=== PATIENT | female | born 1965 | race Two or more races ===

== ENCOUNTER 2016-06-20 03:52 | Emergency (ER) | payer BC, OTHER ==
[~2016-06-20] VITALS: Ht 170.2 cm; Wt 108.4 kg
[2016-06-20 04:24] LABS: Basophils # (auto) 0 uL; Basophils % (auto) 0.7 % (0.0-2.0); Eosinophils # (auto) 0.1 uL; Eosinophils % (auto) 1.5 % (0.0-7.0); Hematocrit 46.3 % (36.0-46.0); Hemoglobin 15.6 g/dL (12.2-16.2); Lymphocytes # (auto) 2.5 uL; Lymphocytes % (auto) 38.7 % (10.0-50.0); Mean Corpuscular Hemoglobin 28.8 pg (28.0-32.0); Mean Corpuscular Hgb Conc. 33.6 g/dL (32.0-36.0); Mean Corpuscular Volume 85.7 fL (80.0-100.0); Mean Platelet Volume 8.5 fL (7.4-10.4); Monocytes # (auto) 0.5 uL; Monocytes % (auto) 7.2 % (0.0-12.0); Neutrophils # (auto) 3.3 uL; Neutrophils % (auto) 51.9 % (37.0-80.0); Platelet Count (auto) 271 10^3/uL (140-450); Red Cell Distribution Width 14.3 % (11.6-16.0); White Blood Cell 6.3 10^3/uL (4.4-10.8)
[2016-06-20 04:43] LABS: Albumin 3.9 g/dL (3.4-5.0); Calcium 8.8 mg/dL (8.5-10.1); Potassium 3.6 mmol/L (3.5-5.1)
[2016-06-20 04:46] LABS: Bilirubin, Total 0.6 mg/dL (0.2-1.0); Total Protein 8.6 g/dL (6.4-8.2)
[2016-06-20] MEDS ORDERED: SODIUM CHLORIDE 0.9% 1,000 ML IV ONE (06:37)
[2016-06-20] MEDS ORDERED: METOCLOPRAMIDE HCL 5MG/ml INJ 2ml VIAL IV ONE (06:45)
[2016-06-20] MEDS ORDERED: MORPHINE SULFATE 4 MG/ML SYRG IV ONE (06:45)
[2016-06-20 10:28] VITALS: BP 107/50
== END 2016-06-20 11:31 | disposition home or self-care (01) ==
LOC: ER 04:00
DX: R51 Headache (principal); I47.1 Supraventricular tachycardia; E66.9 Obesity, unspecified; I25.2 Old myocardial infarction; Z68.37 Body mass index [BMI] 37.0-37.9, adult
CPT/HCPCS: 36415; 70450; 71020; 80053; 81025; 83735; 84443; 85025; 85652; 93005; 94761; 96361; 96374; 99285; J2765; J7030

== ENCOUNTER 2018-04-27 05:23 | Emergency (ER) | payer BC, OTHER ==
[~2018-04-27] VITALS: Ht 170.2 cm; Wt 95.3 kg
[2018-04-27] MEDS ORDERED: cloNIDine HCL 0.1 MG TAB PO ONE (05:45)
[2018-04-27 06:46] LABS: Basophils # (auto) 0 uL; Eosinophils # (auto) 0.1 uL; Eosinophils % (auto) 1.6 % (0.0-7.0); Hematocrit 43.9 % (36.0-46.0); Hemoglobin 14.7 g/dL (12.2-16.2); Lymphocytes % (auto) 44.6 % (10.0-50.0); Mean Corpuscular Hgb Conc. 33.5 g/dL (32.0-36.0); Mean Corpuscular Volume 89.5 fL (80.0-100.0); Monocytes # (auto) 0.4 uL; Monocytes % (auto) 9.5 % (0.0-12.0); Neutrophils # (auto) 1.9 uL; Neutrophils % (auto) 43.3 % (37.0-80.0); Nucleated Red Blood Cells % 0.1 %; Platelet Count (auto) 215 10^3/uL (140-450); Red Cell Distribution Width 14.3 % (11.8-14.3); White Blood Cell 4.4 10^3/uL (4.4-10.8)
[2018-04-27 07:11] LABS: Alanine Aminotransferase 40 U/L (13-56); Albumin 3.6 g/dL (3.4-5.0); Anion Gap 8 (5-15); Aspartate Aminotransferase 21 U/L (15-37); BUN/Creatinine Ratio 33.9; Blood Urea Nitrogen 21 mg/dL (7-18); Carbon Dioxide 23 mmol/L (21-32); Chloride 106 mmol/L (98-107); GFR African American 131 mL/min; GFR Non-African American 108 mL/min; Glucose 93 mg/dL (74-106); Magnesium 2.1 mg/dL (1.6-2.6); Potassium 3.5 mmol/L (3.5-5.1); Sodium 137 mmol/L (136-145)
[2018-04-27 07:22] LABS: Alkaline Phosphatase 85 U/L (45-117); Bilirubin, Total 0.4 mg/dL (0.2-1.0); Total Protein 7.8 g/dL (6.4-8.2)
[2018-04-27 07:52] LABS: Urine Bacteria NONE SEEN /hpf (None Seen); Urine Blood Negative /uL (Negative); Urine Specific Gravity 1.015 (1.001-1.035); Urine WBC <1 /hpf (0 - 5)
[2018-04-27 10:41] VITALS: BP 127/81
== END 2018-04-27 11:58 | disposition home or self-care (01) ==
LOC: ER 05:23
DX: R07.89 Other chest pain (principal); I10 Essential (primary) hypertension; I47.1 Supraventricular tachycardia; F41.9 Anxiety disorder, unspecified; I25.2 Old myocardial infarction
CPT/HCPCS: 36415; 71045; 80053; 81001; 83735; 84443; 84484; 85025; 93005; 94761

== ENCOUNTER → 2018-06-18 | Outpatient (CLI) | payer OTHER ==
[~2018-06-18] MED LIST: AML5T PO; ASPI81CH43 PO; ATOR20TA50 PO; NITR-52 PO
[2018-06-18 09:38] LABS: Basophils # (auto) 0.1 uL; Basophils % (auto) 1.6 % (0.0-2.0); Eosinophils # (auto) 0.1 uL; Eosinophils % (auto) 2.7 % (0.0-7.0); Hematocrit 44.8 % (36.0-46.0); Lymphocytes # (auto) 1.4 uL; Lymphocytes % (auto) 33.9 % (10.0-50.0); Mean Corpuscular Hemoglobin 29.7 pg (28.0-32.0); Mean Corpuscular Hgb Conc. 33.4 g/dL (32.0-36.0); Monocytes # (auto) 0.4 uL; Monocytes % (auto) 9.2 % (0.0-12.0); Neutrophils # (auto) 2.1 uL; Neutrophils % (auto) 52.6 % (37.0-80.0); Nucleated Red Blood Cells % 0.2 %; Platelet Count (auto) 252 10^3/uL (140-450); Red Blood Cells 5.03 10^6/uL (4.0-5.20); Red Cell Distribution Width 13.3 % (11.8-14.3)
[2018-06-18 10:09] LABS: Albumin 3.8 g/dL (3.4-5.0); BUN/Creatinine Ratio 26.9; Calcium 8.5 mg/dL (8.5-10.1)
[2018-06-18 10:12] LABS: Bilirubin, Total 0.7 mg/dL (0.2-1.0)
[2018-06-18 11:11] LABS: Free T4 (Free Thyroxine) 1.08 ng/dL (0.89-1.76); Leuteinizing Hormone 21.4 IU/L
[2018-06-18 11:12] LABS: Follicle Stimulating Hormone 33.14 IU/L (SEE BELOW)
[2018-06-18 11:13] LABS: Folate (Folic Acid) 17.46 ng/mL (5.38-24)
== END | disposition home or self-care (01) ==
LOC: LAB 09:18
PROVIDERS: ATTEND Internal Medicine
DX: E78.5 Hyperlipidemia, unspecified (principal)
CPT/HCPCS: 36415; 80053; 82607; 82670; 82746; 83001; 83002; 83036; 84403; 84439; 84443; 85025

== ENCOUNTER → 2018-09-10 | Outpatient (CLI) | payer OTHER ==
[~2018-09-10] MED LIST changes: -AML5T PO; -ASPI81CH43 PO; -ATOR20TA50 PO; +ATOR40TA52 PO; +LISI10TA6 PO; +METO25TA62 PO; -NITR-52 PO
== END | disposition home or self-care (01) ==
LOC: XYW 09:24
PROVIDERS: ATTEND Internal Medicine
DX: I08.2 Rheumatic disorders of both aortic and tricuspid valves (principal); I10 Essential (primary) hypertension; Z86.73 Personal history of transient ischemic attack (TIA), and cerebral infarction without residual deficits
CPT/HCPCS: 93306

== ENCOUNTER → 2018-10-14 | Outpatient (CLI) | payer OTHER ==
[~2018-10-14] MED LIST changes: +AMLO10TA13 PO; +ASPI-404 PO; +HYDR25TA4 PO; +LOSA-69 PO
[2018-10-14 10:20] LABS: Basophils # (auto) 0.1 uL; Basophils % (auto) 1.5 % (0.0-2.0); Eosinophils # (auto) 0.1 uL; Eosinophils % (auto) 1.9 % (0.0-7.0); Hematocrit 41.5 % (36.0-46.0); Hemoglobin 14.2 g/dL (12.2-16.2); Lymphocytes # (auto) 1.2 uL; Lymphocytes % (auto) 30.1 % (10.0-50.0); Mean Corpuscular Hemoglobin 30.2 pg (28.0-32.0); Mean Corpuscular Hgb Conc. 34.2 g/dL (32.0-36.0); Mean Corpuscular Volume 88.2 fL (80.0-100.0); Monocytes # (auto) 0.4 uL; Monocytes % (auto) 8.8 % (0.0-12.0); Neutrophils # (auto) 2.3 uL; Neutrophils % (auto) 57.7 % (37.0-80.0); Platelet Count (auto) 225 10^3/uL (140-450); Red Cell Distribution Width 14.4 % (11.8-14.3)
[2018-10-14 11:17] LABS: Folate (Folic Acid) 12.1 ng/mL (5.38-24)
[2018-10-14 11:25] LABS: Potassium 3.1 mmol/L (3.5-5.1)
[2018-10-14 11:32] LABS: % Iron Saturation 39.4 % (15-50)
[2018-10-14 11:34] LABS: Albumin 3.6 g/dL (3.4-5.0); BUN/Creatinine Ratio 26.1; Bilirubin, Total 0.8 mg/dL (0.2-1.0); Calcium 8.7 mg/dL (8.5-10.1); Total Protein 7.9 g/dL (6.4-8.2)
== END | disposition home or self-care (01) ==
LOC: LAB 09:47
PROVIDERS: ATTEND Internal Medicine
DX: N63.10 Unspecified lump in the right breast, unspecified quadrant (principal); E78.5 Hyperlipidemia, unspecified; I10 Essential (primary) hypertension
CPT/HCPCS: 36415; 80053; 80061; 82746; 83540; 83550; 85025

== ENCOUNTER 2018-10-15 06:20 | Day surgery (SDC) | payer OTHER ==
[2018-10-14 10:21] LABS: Basophils # (auto) 0.1 uL; Eosinophils # (auto) 0.1 uL; Eosinophils % (auto) 1.8 % (0.0-7.0); Hematocrit 41.1 % (36.0-46.0); Lymphocytes # (auto) 1.2 uL; Lymphocytes % (auto) 28.8 % (10.0-50.0); Mean Corpuscular Hgb Conc. 34.1 g/dL (32.0-36.0); Mean Corpuscular Volume 87.9 fL (80.0-100.0); Monocytes # (auto) 0.3 uL; Monocytes % (auto) 8.1 % (0.0-12.0); Neutrophils # (auto) 2.4 uL; Neutrophils % (auto) 59.3 % (37.0-80.0); Nucleated Red Blood Cells % 0.1 %; Platelet Count (auto) 225 10^3/uL (140-450); Red Blood Cells 4.67 10^6/uL (4.0-5.20); Red Cell Distribution Width 14.1 % (11.8-14.3); White Blood Cell 4.1 10^3/uL (4.4-10.8)
[2018-10-14 10:24] LABS: Urine Bacteria NONE SEEN /hpf (None Seen); Urine Blood Negative /uL (Negative); Urine Mucus FEW (None Seen); Urine Specific Gravity 1.023 (1.001-1.035); Urine WBC 3 /hpf (0 - 5)
[2018-10-14 10:42] LABS: INR 0.93 (0.9-1.15); Partial Thromboplastin Time 29.6 sec (23.64-32.05)
[2018-10-14 11:22] LABS: Calcium 8.6 mg/dL (8.5-10.1); Potassium 3.1 mmol/L (3.5-5.1)
[2018-10-14 11:28] LABS: Albumin 3.6 g/dL (3.4-5.0); BUN/Creatinine Ratio 24.6; Bilirubin, Total 0.8 mg/dL (0.2-1.0); Total Protein 7.9 g/dL (6.4-8.2)
[~2018-10-15] VITALS: Ht 170.2 cm; Wt 95.3 kg
[~2018-10-15 06:20] MED LIST changes: -LISI10TA6 PO; -METO25TA62 PO
[2018-10-15] MEDS ORDERED: ceFAZolin 1GM/50ML 50 ML IV ONE (07:06)
[2018-10-15] MEDS ORDERED: BUPIVACAINE W/ EPINEPH 0.25% INJ 50ML MDV ONE (07:18)
[2018-10-15] MEDS ORDERED: POVIDONE IODINE 10 % TOPICAL OINT 30GM TOP ONE (07:19)
[2018-10-15] MEDS ORDERED: PROPOFOL 10 MG/ML 20 ML IV ONE (07:20)
[2018-10-15] MEDS ORDERED: SUCCINYLCHOLINE CHLORIDE 20 MG/ML 10ML VIAL IV ONE (07:23)
[2018-10-15] MEDS ORDERED: ROCURONIUM 10MG/ML 10ML VIAL IV ONE (07:23)
[2018-10-15] MEDS ORDERED: MIDAZOLAM HCL 1MG/1ML-2 ML VIAL ONE (07:30)
[2018-10-15] MEDS ORDERED: MEPERIDINE HCL (50 MG/ML) 1 ML VIAL ONE (07:30)
[2018-10-15] MEDS ORDERED: DexAMETHasone SOD PHOS 10MG/1ML VIAL INJ ONE (07:57)
[2018-10-15] MEDS ORDERED: HYDROmorphone HCL 2 MG/ML VL IV PRN (09:00)
[2018-10-15 09:29] VITALS: BP 106/72
== END 2018-10-15 09:50 | disposition home or self-care (01) ==
LOC: SUR 06:20
PROVIDERS: ATTEND Surgery
DX: C4A.72 Merkel cell carcinoma of left lower limb, including hip (principal); I10 Essential (primary) hypertension; E66.9 Obesity, unspecified; F41.9 Anxiety disorder, unspecified; Z98.890 Other specified postprocedural states; Z88.8 Allergy status to other drugs, medicaments and biological substances; Z79.82 Long term (current) use of aspirin; Z79.899 Other long term (current) drug therapy; Z78.0 Asymptomatic menopausal state; Z68.32 Body mass index [BMI] 32.0-32.9, adult; Z87.59 Personal history of other complications of pregnancy, childbirth and the puerperium
CPT/HCPCS: 11606; 36415; 80053; 81001; 84702; 85025; 85610; 85730; 88304; 88342; J0330; J0690; J1100; J2175; J2250; J2704

== ENCOUNTER → 2019-04-24 | Outpatient (CLI) | payer OTHER ==
[2019-04-24 15:01] LABS: Basophils # (auto) 0 uL; Basophils % (auto) 1.1 % (0.0-2.0); Eosinophils # (auto) 0 uL; Hemoglobin 13.8 g/dL (12.2-16.2); Lymphocytes # (auto) 0.5 uL; Mean Corpuscular Hemoglobin 30.2 pg (28.0-32.0); Mean Corpuscular Hgb Conc. 33.6 g/dL (32.0-36.0); Mean Corpuscular Volume 89.7 fL (80.0-100.0); Monocytes # (auto) 0.3 uL; Monocytes % (auto) 11.3 % (0.0-12.0); Neutrophils # (auto) 1.6 uL; Neutrophils % (auto) 64.6 % (37.0-80.0); Nucleated Red Blood Cells % 0.1 %; Platelet Count (auto) 211 10^3/uL (140-450); Red Blood Cells 4.57 10^6/uL (4.0-5.20); Red Cell Distribution Width 15.8 % (11.8-14.3); White Blood Cell 2.5 10^3/uL (4.4-10.8)
[2019-04-24 15:48] LABS: Albumin 3.9 g/dL (3.4-5.0); Calcium 9.2 mg/dL (8.5-10.1); Potassium 3.9 mmol/L (3.5-5.1)
[2019-04-24 15:52] LABS: Bilirubin, Total 0.7 mg/dL (0.2-1.0); Phosphorus 2.7 mg/dL (2.5-4.90); Total Protein 8.2 g/dL (6.4-8.2); Uric Acid 3.3 mg/dL (2.6-6.0)
[2019-04-24 15:58] LABS: Free T3 3.06 pg/mL (2.3-4.2); Free T4 (Free Thyroxine) 1.04 ng/dL (0.89-1.76)
[2019-04-24 17:26] LABS: BUN/Creatinine Ratio 21.9
== END | disposition home or self-care (01) ==
LOC: LAB 14:26
DX: C4A.72 Merkel cell carcinoma of left lower limb, including hip (principal); E78.5 Hyperlipidemia, unspecified
CPT/HCPCS: 36415; 80053; 82150; 83615; 83690; 84100; 84439; 84443; 84481; 84550; 85025

== ENCOUNTER → 2021-08-16 | Outpatient (CLI) | payer OTHER ==
[~2021-08-16] MED LIST changes: +AMLO-496 PO; -AMLO10TA13 PO; -ASPI-404 PO; +ASPI-543 PO
[2021-08-16 10:18] LABS: Albumin 3.6 g/dL (3.4-5.0); Calcium 8.8 mg/dL (8.5-10.1); Potassium 3.7 mmol/L (3.5-5.1)
[2021-08-16 10:27] LABS: Bilirubin, Total 0.5 mg/dL (0.2-1.0); Total Protein 7.7 g/dL (6.4-8.2)
[2021-08-16 10:38] LABS: Basophils # (auto) 0 10 ^3/uL (0-0.2); Basophils % (auto) 1.1 % (0.0-2.0); Eosinophils # (auto) 0.1 10 ^3/uL (0-0.8); Eosinophils % (auto) 2.2 % (0.0-7.0); Hematocrit 42.4 % (36.0-46.0); Lymphocytes # (auto) 1.6 10 ^3/uL (0.4-5.4); Lymphocytes % (auto) 42.3 % (10.0-50.0); Mean Corpuscular Hemoglobin 29.7 pg (28.0-32.0); Mean Corpuscular Hgb Conc. 32.9 g/dL (32.0-36.0); Mean Corpuscular Volume 90.2 fL (80.0-100.0); Monocytes # (auto) 0.4 10 ^3/uL (0-1.3); Monocytes % (auto) 10.3 % (0.0-12.0); Neutrophils # (auto) 1.6 10 ^3/uL (1.6-8.6); Neutrophils % (auto) 44.1 % (37.0-80.0); Nucleated Red Blood Cells % 0.2 %; Red Blood Cells 4.71 10^6/uL (4.0-5.20); Red Cell Distribution Width 14.7 % (11.8-14.3); White Blood Cell 3.7 10^3/uL (4.4-10.8)
== END | disposition home or self-care (01) ==
LOC: LAB 09:36
PROVIDERS: ATTEND Internal Medicine
DX: C41.9 Malignant neoplasm of bone and articular cartilage, unspecified (principal); I10 Essential (primary) hypertension
CPT/HCPCS: 36415; 80053; 80061; 82306; 84443; 85025

== ENCOUNTER → 2021-09-25 | Outpatient (CLI) | payer OTHER ==
[2021-09-25 11:09] LABS: Basophils # (auto) 0 10 ^3/uL (0-0.2); Basophils % (auto) 1.3 % (0.0-2.0); Eosinophils # (auto) 0 10 ^3/uL (0-0.8); Eosinophils % (auto) 1.1 % (0.0-7.0); Hematocrit 42.6 % (36.0-46.0); Hemoglobin 14.3 g/dL (12.2-16.2); Lymphocytes # (auto) 1.1 10 ^3/uL (0.4-5.4); Lymphocytes % (auto) 32.4 % (10.0-50.0); Mean Corpuscular Hemoglobin 30.4 pg (28.0-32.0); Mean Corpuscular Hgb Conc. 33.5 g/dL (32.0-36.0); Mean Corpuscular Volume 90.7 fL (80.0-100.0); Monocytes # (auto) 0.4 10 ^3/uL (0-1.3); Monocytes % (auto) 11.1 % (0.0-12.0); Neutrophils # (auto) 1.9 10 ^3/uL (1.6-8.6); Neutrophils % (auto) 54.1 % (37.0-80.0); Nucleated Red Blood Cells % 0.2 %; Red Blood Cells 4.69 10^6/uL (4.0-5.20); Red Cell Distribution Width 14.7 % (11.8-14.3); White Blood Cell 3.5 10^3/uL (4.4-10.8)
[2021-09-25 11:23] LABS: Albumin 3.8 g/dL (3.4-5.0); Calcium 9.1 mg/dL (8.5-10.1); Potassium 3.2 mmol/L (3.5-5.1)
[2021-09-25 11:26] LABS: BUN/Creatinine Ratio 23.1; Bilirubin, Total 0.6 mg/dL (0.2-1.0)
[2021-09-25 19:17] LABS: Free T4 (Free Thyroxine) 1.79 ng/dL (0.89-1.76); T3 Total 1.08 ng/mL (0.60-1.81)
== END | disposition home or self-care (01) ==
LOC: LAB 10:31
PROVIDERS: ATTEND Internal Medicine
DX: E11.9 Type 2 diabetes mellitus without complications (principal); I10 Essential (primary) hypertension
CPT/HCPCS: 36415; 80053; 82024; 82533; 84436; 84439; 84443; 84480; 85025

== ENCOUNTER → 2021-11-14 | Outpatient (CLI) | payer OTHER ==
[2021-11-14 13:21] LABS: Potassium 4.1 mmol/L (3.5-5.1)
[2021-11-14 13:28] LABS: BUN/Creatinine Ratio 22.4; Calcium 8.7 mg/dL (8.5-10.1)
== END | disposition home or self-care (01) ==
LOC: LAB 11:54
PROVIDERS: ATTEND Internal Medicine
DX: E03.9 Hypothyroidism, unspecified (principal); E78.5 Hyperlipidemia, unspecified
CPT/HCPCS: 36415; 80048; 80061

== ENCOUNTER → 2022-01-24 | Outpatient (CLI) | payer OTHER | END | disposition home or self-care (01) | LOC: LAB 11:42 | PROVIDERS: ATTEND Internal Medicine | DX: E87.6 Hypokalemia (principal) | CPT/HCPCS: 36415; 84132 ==

== ENCOUNTER → 2022-01-29 | Outpatient (CLI) | payer OTHER ==
[2022-01-29 09:49] LABS: Albumin 3.5 g/dL (3.4-5.0); Calcium 9.6 mg/dL (8.5-10.1); Potassium 3.6 mmol/L (3.5-5.1)
[2022-01-29 09:54] LABS: BUN/Creatinine Ratio 33.3; Bilirubin, Total 0.8 mg/dL (0.2-1.0); Total Protein 7.8 g/dL (6.4-8.2)
== END | disposition home or self-care (01) ==
LOC: LAB 09:04
PROVIDERS: ATTEND Internal Medicine
DX: E78.5 Hyperlipidemia, unspecified (principal); E55.9 Vitamin D deficiency, unspecified
CPT/HCPCS: 36415; 80053; 80061; 82306

== ENCOUNTER → 2022-06-20 | Outpatient (CLI) | payer OTHER ==
[2022-06-20 14:42] LABS: Basophils # (auto) 0.1 10 ^3/uL (0-0.2); Basophils % (auto) 1.3 % (0.0-2.0); Eosinophils # (auto) 0.1 10 ^3/uL (0-0.8); Eosinophils % (auto) 1.8 % (0.0-7.0); Hematocrit 43.5 % (36.0-46.0); Hemoglobin 14.6 g/dL (12.2-16.2); Lymphocytes # (auto) 1.5 10 ^3/uL (0.4-5.4); Mean Corpuscular Hemoglobin 29.7 pg (28.0-32.0); Mean Corpuscular Hgb Conc. 33.5 g/dL (32.0-36.0); Mean Corpuscular Volume 88.6 fL (80.0-100.0); Monocytes # (auto) 0.5 10 ^3/uL (0-1.3); Monocytes % (auto) 11.8 % (0.0-12.0); Neutrophils # (auto) 2.2 10 ^3/uL (1.6-8.6); Neutrophils % (auto) 51.1 % (37.0-80.0); Nucleated Red Blood Cells % 0.3 %; Red Blood Cells 4.91 10^6/uL (4.0-5.20); Red Cell Distribution Width 14.6 % (11.8-14.3); White Blood Cell 4.4 10^3/uL (4.4-10.8)
[2022-06-20 15:37] LABS: Albumin 3.6 g/dL (3.4-5.0)
[2022-06-20 15:40] LABS: BUN/Creatinine Ratio 23.5 (10.0-20.0); Calcium 9.2 mg/dL (8.5-10.1)
[2022-06-20 15:42] LABS: Bilirubin, Total 0.4 mg/dL (0.2-1.0); Total Protein 8.2 g/dL (6.4-8.2)
== END | disposition home or self-care (01) ==
LOC: LAB 14:18
PROVIDERS: ATTEND Nurse Practitioner
DX: I10 Essential (primary) hypertension (principal); E78.5 Hyperlipidemia, unspecified; E03.9 Hypothyroidism, unspecified
CPT/HCPCS: 36415; 80053; 84443; 85025

== ENCOUNTER → 2023-01-29 | Outpatient (CLI) | payer OTHER ==
[~2023-01-29] MED LIST changes: -AMLO-496 PO; +CEPH250C PO; +LEV50T PO; -LOSA-69 PO; +LOSA50TA46 PO
[2023-01-29 11:13] LABS: Alanine Aminotransferase 61 U/L (7-40); Albumin 4.6 g/dL (3.2-4.8); Alkaline Phosphatase 99 U/L (46-116); Amylase 76 U/L (30-118); Anion Gap 6 (5-15); Aspartate Aminotransferase 43 U/L (13-40); BUN/Creatinine Ratio 14.7 (10.0-20.0); Blood Urea Nitrogen 11 mg/dL (9-23); Carbon Dioxide 25 mmol/L (20-30); Chloride 108 mmol/L (98-107); Glucose 107 mg/dL (74-106); Lipase 32 U/L (12-53); Potassium 3.8 mmol/L (3.5-5.1); Sodium 139 mmol/L (136-145)
[2023-01-29 11:14] LABS: Bilirubin, Total 0.8 mg/dL (0.2-1.0); Total Protein 7.6 g/dL (5.7-8.2)
== END | disposition home or self-care (01) ==
LOC: LAB 10:12
PROVIDERS: ATTEND Internal Medicine
DX: C4A.9 Merkel cell carcinoma, unspecified (principal)
CPT/HCPCS: 36415; 80053; 82150; 83690

== ENCOUNTER → 2023-03-19 | Outpatient (CLI) | payer OTHER ==
[2023-03-19 15:57] LABS: Albumin 4.8 g/dL (3.2-4.8); Bilirubin, Direct 0.2 mg/dL (<0.3); Bilirubin, Total 0.7 mg/dL (0.2-1.0)
== END | disposition home or self-care (01) ==
LOC: LAB 15:10
PROVIDERS: ATTEND Internal Medicine
DX: E55.9 Vitamin D deficiency, unspecified (principal)
CPT/HCPCS: 36415; 80076; 82306; 83036

== ENCOUNTER → 2023-03-22 | Outpatient (CLI) | payer OTHER ==
[2023-03-22 07:53] LABS: Basophils # (auto) 0 10 ^3/uL (0-0.2); Basophils % (auto) 0.9 % (0.0-2.0); Eosinophils # (auto) 0.1 10 ^3/uL (0-0.8); Eosinophils % (auto) 1.6 % (0.0-7.0); Hematocrit 43.5 % (36.0-46.0); Hemoglobin 14.2 g/dL (12.2-16.2); Lymphocytes # (auto) 1.3 10 ^3/uL (0.4-5.4); Lymphocytes % (auto) 29.6 % (10.0-50.0); Mean Corpuscular Hemoglobin 29.4 pg (28.0-32.0); Mean Corpuscular Hgb Conc. 32.7 g/dL (32.0-36.0); Mean Corpuscular Volume 89.8 fL (80.0-100.0); Monocytes # (auto) 0.4 10 ^3/uL (0-1.3); Monocytes % (auto) 8.4 % (0.0-12.0); Neutrophils # (auto) 2.7 10 ^3/uL (1.6-8.6); Neutrophils % (auto) 59.5 % (37.0-80.0); Nucleated Red Blood Cells % 0.1 %; Red Blood Cells 4.84 10^6/uL (4.0-5.20); Red Cell Distribution Width 13.9 % (11.8-14.3); White Blood Cell 4.5 10^3/uL (4.4-10.8)
[2023-03-22 08:24] LABS: Alanine Aminotransferase 43 U/L (7-40); Alkaline Phosphatase 106 U/L (46-116); Anion Gap 7 (5-15); BUN/Creatinine Ratio 15.2 (10.0-20.0); Blood Urea Nitrogen 12 mg/dL (9-23); Calcium 9.6 mg/dL (8.5-10.1); Carbon Dioxide 26 mmol/L (20-30); Chloride 107 mmol/L (98-107); Glucose 96 mg/dL (74-106); LDL Cholesterol 60 mg/dL (< 100); Potassium 3.9 mmol/L (3.5-5.1); Sodium 140 mmol/L (136-145); Triglycerides 104 mg/dL (< 150)
[2023-03-22 08:25] LABS: Albumin 4.7 g/dL (3.2-4.8); Aspartate Aminotransferase 24 U/L (13-40); Bilirubin, Total 0.8 mg/dL (0.2-1.0); Cholesterol 123 mg/dL (< 200); HDL Cholesterol 45 mg/dL (40-59)
[2023-03-22 08:26] LABS: Total Protein 7.8 g/dL (5.7-8.2)
== END | disposition home or self-care (01) ==
LOC: LAB 07:40
PROVIDERS: ATTEND Internal Medicine
DX: E78.5 Hyperlipidemia, unspecified (principal)
CPT/HCPCS: 36415; 80053; 80061; 80074; 85025

== ENCOUNTER 2024-11-02 13:55 | Inpatient (IN) | payer OTHER ==
[~2024-11-02] VITALS: Ht 170.2 cm; Wt 112.2 kg
[~2024-11-02 13:55] MED LIST changes: -LEV50T PO; +LEVO-848 PO; +LOSA-534 PO; -LOSA50TA46 PO
--- NOTE | 2024-11-02 14:39 | ED.PDOC ---
History of Present Illness HPI Comments 59y F who presents to the ED for chief complaint of fatigue and left upper extremity pain. Pt states she has been having extreme fatigue over the past 2 weeks, falling asleep multiple times a day. Patient states today, she developed shortness of breath, dyspnea on exertion, and left upper extremity throbbing pain in her wrist, forearm, shoulder and radiating to the left upper back. Pt states reports similar left upper extremity pain with previous VA. PT states in the ED, she is having pain by the L wrist, throbbing in nature, with no exacerbating or relieving factors. Pt states she is currently in remission for [place] cell cancer. Pt in the ED is otherwise ax0x4 and no noted abnormalities in gait, vision or speech are noted. Pt has noted heart rate of 106 but otherwise stable vitals with 02 sat of 97% on room air, BP 130/78, RR 16, and temp of 98.6 F. Pt otherwise denies any other symptoms at this time. Chief Complaint: Upper Extremity Time Seen by MD: 14:33 Primary Care Provider: NONE Reviewed Notes: Medications, Allergies Allergies: Coded Allergies: NO KNOWN ALLERGIES (Unverified , 10/14/18) Home Meds Active Scripts Cephalexin (KEFLEX CAPSULE) 250 Mg Cp, 500 MG PO TID for 5 Days, #15 CAP Prov:MIGEL POWERS MD 09/16/22 Reported Medications Levothyroxine Sodium (SYNTHROID TABLET) 50 Mcg Tb, 1 TAB PO DAILY, TAB 5 Refills 09/14/22 Aspirin (Aspir-Low) 81 Mg Tab, 81 MG PO DAILY for 30 Days, MG 10/14/18 Losartan Potassium (Losartan Potassium) 50 Mg Tab, 50 MG PO HS for 30 Days, MG 10/14/18 Hydrochlorothiazide (Hydrochlorothiazide) 25 Mg Tab, 25 MG PO HS for 30 Days, MG 10/14/18 Atorvastatin Calcium (ATORVASTATIN CALCIUM) 40 Mg Tab, 1 TAB PO QPM, #90 TAB 3 Refills 07/22/18 Information Source: Patient Mode of Arrival: Ambulatory Past Medical History PAST MEDICAL HISTORY: Anxiety, Cancer, CVA, High Lipids, HTN, VA Surgical History: LITIGATION PARTNER History: No Pertinent LITIGATION PARTNER History Family History Family History: Reviewed,noncontributory to illness, No family hx of Cancer, No family hx of Heart vic Social History Smoker: Non-Smoker Alcohol: Denies ETOH Use Drugs: Denies Drug Use Lives In: Home All Other Systems: Reviewed and Negative (see HPI) Physical Exam General Appearance: No Apparent Distress, Obese HEENT: Other (Pupils and face symmetric. Moist mucous membranes.) Neck: Full Range of Motion, Normal Inspection Respiratory: Lungs Clear, No Accessory Muscle Use, No Respiratory Distress, Normal Breath Sounds Cardiovascular: No Edema, No JVD, Regular Rate/Rhythm Breast Exam: Deferred Gastrointestinal: Non Tender, Soft Genitalia: Deferred Pelvic: Deferred Rectal: Deferred Extremities: Normal inspection, Normal range of motion, Non-tender, No pedal edema Neurologic: Alert (Oriented x4), Normal Affect, Normal Mood, Other (Ambulatory) Cerebellar Function: NOT DONE Reflexes: NOT DONE Skin: Dry, Normal Color, Warm Lymphatic: NOT DONE Was a procedure done? Was a procedure done?: No EKG EKG : Comments Sinus rhythm, rate 79, normal intervals, normal axis, normal QRS, nonspecific T change. Differential Dx Considerations may include: Angina, ACS, VA, CHF, PE, among others X-Ray, Labs, Meds, VS Vital Signs Date Time Temp Pulse Resp B/P (MAP) Pulse Ox O2 Delivery O2 Flow Rate FiO2 11/02/24 19:02 97.8 72 12 109/80 (90) 95 97.8 11/02/24 15:37 137/95 11/02/24 14:15 79 11/02/24 14:02 98.6 106 16 130/78 97 98.6 Lab Test 11/02/24 15:46 11/02/24 14:45 Range/Units Troponin I High Sensitivity < 3 L < 3 L </=34 ng/L White Blood Count 3.7 L 4.4-10.8 10^3/uL Red Blood Count 5.22 H 4.0-5.20 10^6/uL Hemoglobin 15.9 12.2-16.2 g/dL Hematocrit 46.4 H 36.0-46.0 % Mean Corpuscular Volume 88.8 80.0-100.0 fL Mean Corpuscular Hemoglobin 30.4 28.0-32.0 pg Mean Corpuscular Hemoglobin Concent 34.3 32.0-36.0 g/dL Red Cell Distribution Width 15.8 H 11.8-14.3 % Platelet Count 204 140-450 10^3/uL Mean Platelet Volume 8.8 6.9-10.8 fL Neutrophils (%) (Auto) 50.3 37.0-80.0 % Lymphocytes (%) (Auto) 32.8 10.0-50.0 % Monocytes (%) (Auto) 12.1 H 0.0-12.0 % Eosinophils (%) (Auto) 3.5 0.0-7.0 % Basophils (%) (Auto) 1.3 0.0-2.0 % Neutrophils # (Auto) 1.9 1.6-8.6 10 ^3/uL Lymphocytes # (Auto) 1.2 0.4-5.4 10 ^3/uL Monocytes # (Auto) 0.5 0-1.3 10 ^3/uL Eosinophils # (Auto) 0.1 0-0.8 10 ^3/uL Basophils # (Auto) 0 0-0.2 10 ^3/uL Nucleated Red Blood Cells 0.2 % D-Dimer, Quantitative < 0.19 0.0-0.49 mg/L FEU Sodium Level 140 136-145 mmol/L Potassium Level 3.9 3.5-5.1 mmol/L Chloride Level 106 98-107 mmol/L Carbon Dioxide Level 24 20-31 mmol/L Anion Gap 10 5-15 Blood Urea Nitrogen 10 9-23 mg/dL Creatinine 0.70 0.550-1.02 mg/dL Glomerular Filtration Rate Calc 100 >90 mL/min BUN/Creatinine Ratio 14.3 10.0-20.0 Serum Glucose 104 74-106 mg/dL Calcium Level 9.2 8.7-10.4 mg/dL B-Type Natriuretic Peptide 27.47 0-100 pg/mL Current Medications Medications (Trade) Dose Ordered Sig/Linsey Route Start Time Stop Time Status Last Admin Aspirin 325 mg ONCE ONCE PO 11/02/24 14:30 11/02/24 14:31 DC 11/02/24 15:37 Nitroglycerin (Nitro-Bid) 1 pkg ONCE ONCE TD 11/02/24 14:30 11/02/24 14:31 DC 11/02/24 15:[address] [address] Ph: [phone] DIAGNOSTIC IMAGING Diagnostic Imaging Report : [id number] Signed PATIENT: AMBER RAJPUT ACCT: [id number] UNIT: [id number] : 1965 LOC: ER ROOM / BED: / AGE / SEX: 59 / F ADM STATUS: REG ER SERVICE 1413 ORDERING PHYSICIAN: BENJI LANDAVERDE MD PROCEDURE(s): CXRP - CHEST PORTABLE REASON: LUE pain ORDER NUMBER(s): [id number], ACCESSION NUMBER(s): [id number] XY CHEST PORTABLE, HISTORY: LUE pain COMPARISON: XY CHEST PORTABLE on DOS: 09/13/22 XY CHEST PORTABLE on DOS: 09/13/22 TECHNICAL DATA: 1 view of the chest was obtained. FINDINGS: Lines and tubes: None Cardiomediastinal silhouette: normal Pulmonary vasculature: normal Lung expansion: normal Lung airspace: normal Lung interstitium: normal Pleura: normal Pneumothorax: no Bones: Unremarkable Other: no IMPRESSION: No acute intrathoracic abnormality. ATED BY: JAMAR HAWTHORNE MD DICTATED DATE/TIME: 11/02/241452 SIGNED BY: JAMAR HAWTHORNE MD SIGNED DATE/TIME: 11/02/241452 CC: X-Ray, Labs, Meds, VS Comment 59-year-old female with a history of hypertension, dyslipidemia mi, CVA and [place] cell cancer in remission complaining of extreme fatigue and left upper extremity pain similar to pain experienced with prior VA Vitals remarkable for initial heart rate 106 Exam unremarkable Rhythm strip independently interpreted by me: Sinus rhythm, rate 79, no ectopy. Chest x-ray unremarkable CBC, basic metabolic panel, BNP, 2 serial troponins and D-dimer unremarkable for any abnormality of acute significance Patient treated with the following in the ED: Aspirin 325 mg p.o., nitro bid 1/2 inch to chest wall, Tylenol 1 g p.o. On re-evaluation, patient states the left upper extremity pain has resolved. Vitals are stable. Plan is to admit the patient for Cardiology evaluation. Time of 1ST Reevaluation: 17:23 Reevaluation 1ST: Improved Patient Education/Counseling: Diagnosis, Treatment Family Education/Counseling: No Family Present SEPSIS Sepsis Screen Date sepsis recognized/suspect: Nov 02, 2024 Time Sepsis recognized/suspect: 1406 Recent Procedure: No On Antibiotic Therapy: No Respiratory Rate >20: No Heart Rate >90: No Temp<36 C (96.8 F) or >38.3 C: No SBP <90 or MAP <65 mmHG: No New Acute Mental Status Change: No Is the patient on CPAP, BIPAP,: No Physician Orders Electrocardigram (11/02/24 14:08) Chest Portable (11/02/24 14:13) Urinalysis (11/02/24 14:13) Vital Signs Date Time Temp Pulse Resp B/P (MAP) Pulse Ox O2 Delivery O2 Flow Rate FiO2 11/02/24 19:02 97.8 72 12 109/80 (90) 95 97.8 11/02/24 15:37 137/95 11/02/24 14:15 79 11/02/24 14:02 98.6 106 16 130/78 97 98.6 Laboratory Tests Test 11/02/24 14:45 White Blood Count 3.7 10^3/uL (4.4-10.8) L Medications Medications Dose Ordered Sig/Linsey Route Start Time Stop Time Status Last Admin Dose Admin Aspirin 325 mg ONCE ONCE PO 11/02/24 14:30 11/02/24 14:31 DC 11/02/24 15:37 Nitroglycerin 1 pkg ONCE ONCE TD 11/02/24 14:30 11/02/24 14:31 DC 11/02/24 15:37 Departure 1 Departure Time of Disposition: 17:24 Impression: Primary Impression: Anginal equivalent Additional Impression: Angina at rest Disposition: 09 ADMITTED INPATIENT Admit to: Tele Condition: Guarded Critical Care Note Critical Care Time?: No Stability Stability form required: No Heart Score Heart Score: Heart Score Response (Comments) Value History Moderate Suspicious 1 EKG Repolarization Disturb 1 Age 45-64 1 Risk Factors >3 or Hx ASHD 2 Troponin Normal limit 0 Total 5 I personally scribed for BENJI LANDVAERDE MD ([email or web address]) on 11/02/24 at 14:39. Electronically submitted by Jerrell Doll ([facility] [place]). I personally scribed for BENJI LANDAVERDE MD ([email or web address]) on 11/02/24 at 14:43. Electronically submitted by Jerrell Doll ([email or web address]). I personally scribed for BENJI LANDAVERDE MD ([email or web address]) on 11/02/24 at 15:19. Electron[facility] BENJI LANDAVERDE MD Nov 02, 2024 14:39
--- NOTE | 2024-11-02 14:55 | DVH ---
XY CHEST PORTABLE, HISTORY: LUE pain COMPARISON: XY CHEST PORTABLE on DOS: 09/13/22 XY CHEST PORTABLE on DOS: 09/13/22 TECHNICAL DATA: 1 view of the chest was obtained. FINDINGS: Lines and tubes: None Cardiomediastinal silhouette: normal Pulmonary vasculature: normal Lung expansion: normal Lung airspace: normal Lung interstitium: normal Pleura: normal Pneumothorax: no Bones: Unremarkable Other: no IMPRESSION: No acute intrathoracic abnormality.
[2024-11-02 15:00] LABS: Hematocrit 46.4 % (36.0-46.0); Hemoglobin 15.9 g/dL (12.2-16.2); Mean Corpuscular Hemoglobin 30.4 pg (28.0-32.0); Mean Corpuscular Volume 88.8 fL (80.0-100.0); Nucleated Red Blood Cells % 0.2 %
[2024-11-02 15:08] LABS: Chloride 106 mmol/L (98-107); Potassium 3.9 mmol/L (3.5-5.1); Sodium 140 mmol/L (136-145)
[2024-11-02 15:09] LABS: Anion Gap 10 (5-15)
[2024-11-02 15:10] LABS: Calcium 9.2 mg/dL (8.7-10.4)
[2024-11-02 15:12] LABS: Carbon Dioxide 24 mmol/L (20-31)
[2024-11-02 15:14] LABS: Glucose 104 mg/dL (74-106)
[2024-11-02 15:15] LABS: BUN/Creatinine Ratio 14.3 (10.0-20.0); Blood Urea Nitrogen 10 mg/dL (9-23)
[2024-11-02] MEDS: NITROGLYCERIN 2% OINT 1GM PKG TD ONE (15:37)
[2024-11-02] MEDS ORDERED: DOCUSATE SOD 100 MG CAP PO PRN (23:15)
[2024-11-02] MEDS ORDERED: ONDANSETRON HCL 4 MG/2 ML VIAL IV PRN (23:15)
[2024-11-02] MEDS ORDERED: NITROGLYCERIN 0.4 MG SL TAB SL PRN (23:15)
[2024-11-02] MEDS ORDERED: ACETAMINOPHEN 325 MG TAB PO PRN (23:15)
[2024-11-02] MEDS ORDERED: MORPHINE SULFATE INJ 2 MG/ml SYRG IV PRN (23:15)
[2024-11-02] MEDS: ACETAMINOPHEN 500 MG TAB or CAP PO ONE (23:36)
--- NOTE | 2024-11-03 00:10 | DVHHPRES ---
History of Present Illness Resident Creating Document: CARLENE CHACKO RESIDENT History of Present Illness Rahel Dumont, is a 59-year-old female with past medical history of 2 cardiac stents placed, 2 episodes of stroke in the past, generalized weakness and inability to stay awake since 2 weeks. Patient states that she has been sleeping 5 times a day and extremely fatigued since 2 weeks. Also states she had 1 episode of vomiting, nausea, heartburn, shortness for breath, dyspnea on exertion. Patient also states left arm pain that was throbbing in nature, 8/10 in intensity, radiating to the left shoulder left upper back that started yesterday morning and was relieved with nitroglycerin in the hospital. Patient states that this pain is similar to the episodes Patient is currently in remission for [place] cell cancer. Her next appointment with oncologist is to get a PET scan in 2 weeks. Her last chemo therapy was with immunotherapy 6 months ago. He denies any dizziness, dysuria, hematuria, headaches, dizziness, diarrhea, constipation, weight loss, fever, chills. Patient is admitted for further management. Echo ordered. Past medical history: Anxiety, Cancer, CVA, hyperlipidemia, HTN, SC Surgical history: , surgery on left calf and left inguinal region Personal History: patient denies smoking, occasionally drinks, denies drug use Lives with: Family PCP Review of Systems Constitutional: No: Fever, Chills, Sweats, Weakness, Malaise, Other Eyes: No: Pain, Vision change, Conjunctivae inflammation, Eyelid inflammation, Other, Redness ENT: No: Ear pain, Ear discharge, Nose pain, Nose discharge, Nose congestion, Mouth pain, Mouth swelling, Throat pain, Throat swelling, Other Respiratory: Shortness of breath; No: Cough, Dry, SOB with excertion, Wheezing, Hemoptysis, Pleuritic Pain, Sputum, Wheezing, Other Cardiovascular: Chest Pain; No: Palpitations, Orthopnea, Paroxysmal Noc. Dyspnea, Edema, Lt Headedness, Other Gastrointestinal: Nausea, Vomiting Genitourinary: No Dysuria, No Frequency, No Incontinence, No Hematuria, No Retention, No Other Musculoskeletal: shoulder pain, arm pain; No: other, neck pain, back pain, hand pain, leg pain, foot pain Skin: No: Rash, Lesions, Jaundice, Bruising, Other Neurological: No: Weakness, Numbness, Incoordination, Change in speech, Confusion, Seizures, Other Allergies: Coded Allergies: NO KNOWN ALLERGIES (Unverified , 10/14/18) Medications Current Medications Medications Dose Ordered Sig/Linsey Route Start Time Stop Time Status Last Admin Dose Admin Ondansetron HCl 4 mg Q4HP PRN IV 11/02/24 23:15 Docusate Sodium 100 mg BIDPRN PRN PO 11/02/24 23:15 Acetaminophen 650 mg Q6HP PRN PO 11/02/24 23:15 Nitroglycerin 0.4 mg Q5MINP PRN SL 11/02/24 23:15 Morphine Sulfate 2 mg Q30M PRN IV 11/02/24 23:15 Exam Vital Signs Vital Signs Date Time Temp Pulse Resp B/P (MAP) Pulse Ox O2 Delivery O2 Flow Rate FiO2 11/02/24 23:33 97.6 91 16 120/73 (89) 94 97.6 Exam General: Patient alert and oriented in person, place and time. Patient f ollowing commands. Mild distress HEENT: Normocephalic, atraumatic, moist mucous membranes Respiratory/pulmonary: Clear lungs bilaterally, vesicular murmurs present in almost all lung meraz, no associated crackles or wheezes. Cardiovascular: Normal heart sounds S1 and S2 with no associated murmurs Abdomen: Abdomen nondistended, there is no pain to palpation in any of the abdominal quadrants, no palpable masses. Extremities: Left Arm Tenderness, Left shoulder and Back tenderness Peripheral Pulses: 3+ Radial (R). 3+ Radial (L). 3+ Dorsalis pedis (R). 3+ Dorsalis pedis(L) Skin: No rashes or pruritus, there is no sacral edema present at this time. Neurological: Intact cranial nerves with no focal neurologic deficits Psych/mood: Psych/mood normal Labs/Xrays Labs Test 11/02/24 15:46 11/02/24 14:45 Range/Units Troponin I High Sensitivity < 3 L </=34 ng/L White Blood Count 3.7 L 4.4-10.8 10^3/uL Red Blood Count 5.22 H 4.0-5.20 10^6/uL Hemoglobin 15.9 12.2-16.2 g/dL Hematocrit 46.4 H 36.0-46.0 % Mean Corpuscular Volume 88.8 80.0-100.0 fL Mean Corpuscular Hemoglobin 30.4 28.0-32.0 pg Mean Corpuscular Hemoglobin Concent 34.3 32.0-36.0 g/dL Red Cell Distribution Width 15.8 H 11.8-14.3 % Platelet Count 204 140-450 10^3/uL Mean Platelet Volume 8.8 6.9-10.8 fL Neutrophils (%) (Auto) 50.3 37.0-80.0 % Lymphocytes (%) (Auto) 32.8 10.0-50.0 % Monocytes (%) (Auto) 12.1 H 0.0-12.0 % Eosinophils (%) (Auto) 3.5 0.0-7.0 % Basophils (%) (Auto) 1.3 0.0-2.0 % Neutrophils # (Auto) 1.9 1.6-8.6 10 ^3/uL Lymphocytes # (Auto) 1.2 0.4-5.4 10 ^3/uL Monocytes # (Auto) 0.5 0-1.3 10 ^3/uL Eosinophils # (Auto) 0.1 0-0.8 10 ^3/uL Basophils # (Auto) 0 0-0.2 10 ^3/uL Nucleated Red Blood Cells 0.2 % D-Dimer, Quantitative < 0.19 0.0-0.49 mg/L FEU Sodium Level 140 136-145 mmol/L Potassium Level 3.9 3.5-5.1 mmol/L Chloride Level 106 98-107 mmol/L Carbon Dioxide Level 24 20-31 mmol/L Anion Gap 10 5-15 Blood Urea Nitrogen 10 9-23 mg/dL Creatinine 0.70 0.550-1.02 mg/dL Glomerular Filtration Rate Calc 100 >90 mL/min BUN/Creatinine Ratio 14.3 10.0-20.0 Serum Glucose 104 74-106 mg/dL Calcium Level 9.2 8.7-10.4 mg/dL B-Type Natriuretic Peptide 27.47 0-100 pg/mL SEPSIS Sepsis Screen Date sepsis recognized/suspect: Nov 02, 2024 Time Sepsis recognized/suspect: 1405 Recent Procedure: No On Antibiotic Therapy: No Respiratory Rate >20: No Heart Rate >90: No Temp<36 C (96.8 F) or >38.3 C: No SBP <90 or MAP <65 mmHG: No New Acute Mental Status Change: No Is the patient on CPAP, BIPAP,: No Physician Orders Admit (11/02/24 23:11) Allergies (11/02/24 23:11) Code Status (11/02/24 23:11) Ondansetron Hcl (Zofran) (11/02/24 23:15) Docusate Sodium Capsule (Colace Capsule) (11/02/24 23:15) Complete Blood Count (11/03/24 04:00) Comprehensive Metabolic Panel (11/03/24 04:00) Cardiac Diet-2gna,Lofat,Lochol (11/03/24 Breakfast) Condition: Serious (11/02/24 23:11) Acetaminophen Tablet (Tylenol Tablet) (11/02/24 23:15) Bedrest With Bathroom Privileg (11/02/24 23:11) Nitroglycerin Sublingual (Ntrostat Subli (11/02/24 23:15) Morphine Sulfate Injection (11/02/24 23:15) Oxygen By Nasal Cannula (11/02/24 23:11) Stat Ekg For Chest Pain (11/02/24 23:11) Notify Md Of Changes From Base (11/02/24 23:11) Advertising Traffic Manager For 24 Hours (11/02/24 23:11) Emergency Dysrhythmia Protocol (11/02/24 23:11) Rhythm Strips Once Every Shift (11/02/24 23:11) Vital Signs Date Time Temp Pulse Resp B/P (MAP) Pulse Ox O2 Delivery O2 Flow Rate FiO2 11/02/24 23:33 97.6 91 16 120/73 (89) 94 97.6 11/02/24 19:02 97.8 72 12 109/80 (90) 95 97.8 Laboratory Tests Test 11/02/24 14:45 White Blood Count 3.7 10^3/uL (4.4-10.8) L Medications Medications Dose Ordered Sig/Linsey Route Start Time Stop Time Status Last Admin Dose Admin Acetaminophen 1,000 mg ONCE ONCE PO 11/02/24 17:30 11/02/24 17:41 DC 11/02/24 23:36 1,000 MG Aspirin 325 mg ONCE ONCE PO 11/02/24 14:30 11/02/24 14:31 DC 11/02/24 15:37 325 MG Nitroglycerin 1 pkg ONCE ONCE TD 11/02/24 14:30 11/02/24 14:31 DC 11/02/24 15:37 1 PKG Assessment/Plan Assessment/Plan Assessment and plan # Interactable left arm pain- ? Angina, ? Radiculopathy # history of SC s/p Stent placement - troponin negative - BNP- WNL - D-dimer WNL - cervical spine x-ray ordered, pending - morphine, nitro for pain management - echo ordered, pending - continue aspirin, atorvastatin - repeat EKG - cardiology consult if Cardiology troponin or EKG # generalized fatigue , likely due to ?immunotherapy, immunotherapy induced cardiotoxicity? # history of [place] cell carcinoma # neutropenia possibly due to immunotherapy - follow-up outpatient with oncologist # hyperbilirubinemia with transaminitis - hepatitis panel - monitor labs -acetaminophen levels - GI consult # History of stoke -asa and atorvastatin # hypertension -continue home meds # dyslipidemia -continue home meds # hypothyroidism Continue home meds # Anxiety -continue home meds # obesity BMI- 37.6 - patient counseled on diet, exercise, lifestyle modifications for the 13 minutes PPI prophylaxis: Pantoprazole 40 mg DVT prophylaxis: pt is ambulatory Goals of care addressed with the patient for more than 31 minutes: Full code status Case discussed with Dr. Sloan , patient and nurse Plan discussed with: Patient My Orders Orders - CARLENE CHACKO RESIDENT Procedure Category Date Status Time Admit ADMIT 11/02/24 Transmitted 23:11 Allergies ALANNA 11/02/24 In Process 23:11 Code Status CODE 11/02/24 Transmitted 23:11 Ondansetron Hcl PHA 11/02/24 In Process (Zofran) 23:15 Docusate Sodium PHA 11/02/24 In Process Capsule (Colace 23:15 Complete Blood Count LAB 11/03/24 Logged 04:00 Comprehensive LAB 11/03/24 Logged Metabolic Panel 04:00 Cardiac DIET 11/03/24 Transmitted Diet-2gna,Lofat,Lochol Breakfast Condition: Serious ALANNA 11/02/24 In Process 23:11 Acetaminophen Tablet PHA 11/02/24 In Process (Tylenol Tablet) 23:15 Bedrest With Bathroom ALANNA 11/02/24 In Process Privileg 23:11 Nitroglycerin PHA 11/02/24 In Process Sublingual (Ntrostat 23:15 Morphine Sulfate PHA 11/02/24 In Process Injection 23:15 Oxygen By Nasal RT 11/02/24 Transmitted Cannula 23:11 Stat Ekg For Chest ALANNA 11/02/24 In Process Pain 23:11 Notify Md Of Changes [facility] 11/02/24 In Process From Base 23:11 Advertising Traffic Manager For [facility] 11/02/24 In Process 24 Hours 23:11 Emergency Dysrhythmia [facility] 11/02/24 In Process Protocol 23:11 Rhythm Strips Once [facility] 11/02/24 In Process Every Shift 23:11 Date of Service: Nov 03, 2024 Billing Provider: MIGEL SLOAN MD Common Visit Codes: [id number] INP/OBS CARE (HIGH) Secondary Visit Codes: [id number] CARE PLAN 30 MINUTES CARLENE CHACKO RESIDENT Nov 03, 2024 00:10 HERACLIO JONES RESIDENT Nov 03, 2024 08:27
[2024-11-03 02:00] VITALS: RESP 14
[2024-11-03 05:14] LABS: Hematocrit 44.1 % (36.0-46.0); Hemoglobin 14.9 g/dL (12.2-16.2); Mean Corpuscular Hemoglobin 30.3 pg (28.0-32.0); Mean Corpuscular Volume 89.7 fL (80.0-100.0); Nucleated Red Blood Cells % 0.3 %
[2024-11-03 05:20] VITALS: BP 101/63; PULSE 71; RESP 20; TEMP 97.3; O2SAT 98
--- NOTE | 2024-11-03 05:21 | DVH ---
INDICATION: radiculopathy TECHNIQUE: 3 views of the cervical spine were obtained. COMPARISON: None FINDINGS: The cervical spine is visualized from C1-C7. There is loss of the normal cervical lordosis which can be positional. No fractures or subluxations are identified. Alignment appears unremarkable. Prevertebral soft tissues are within normal limits. IMPRESSION: 1. No evidence of acute osseous abnormality.
[2024-11-03 05:31] LABS: Albumin 4.3 g/dL (3.2-4.8); Anion Gap 10 (5-15); BUN/Creatinine Ratio 18.3 (10.0-20.0); Blood Urea Nitrogen 13 mg/dL (9-23); Calcium 9.3 mg/dL (8.7-10.4); Carbon Dioxide 25 mmol/L (20-31); Chloride 105 mmol/L (98-107); Glucose 96 mg/dL (74-106); Potassium 3.8 mmol/L (3.5-5.1); Sodium 140 mmol/L (136-145); Total Protein 7.4 g/dL (5.7-8.2)
[2024-11-03 05:34] LABS: Alanine Aminotransferase 984 U/L (7-40); Alkaline Phosphatase 180 U/L (46-116); Bilirubin, Total 1.7 mg/dL (0.2-1.0)
[2024-11-03 06:06] LABS: Triglycerides 150 mg/dL (< 150)
[2024-11-03 06:08] LABS: Cholesterol 155 mg/dL (< 200)
[2024-11-03 06:10] LABS: Bilirubin, Direct 0.9 mg/dL (<0.3); HDL Cholesterol 34 mg/dL (40-59)
--- NOTE | 2024-11-03 07:20 | ECG ---
[facility] Test Date: 2024-11-02 Test Time: 14:15:03 Pat Name: AMBER RAJPUT Department: [facility] ED Room: [address] [place] [address] Gender: F Epic Ambulatory Specialists: dio : 1965 Requested By: FRANCISCA SORIA Order Number: [id number] Reading MD: Measurements Intervals [place] Rate: 79 P: 52 AL: 164 QRS: 59 QRSD: 86 T: 24 QT: 381 QTc: 437 Interpretive Statements Sinus rhythm Left atrial enlargement Baseline wander in lead(s) II,III,aVF,V3,V5 Please click the below link to view image of tracing.
[2024-11-03 08:50] VITALS: BP 116/72; PULSE 70; RESP 16; TEMP 98.2; O2SAT 96
--- NOTE | 2024-11-03 09:19 | DVH ---
INDICATION: transaminitis and abd pain TECHNIQUE: Multiple real-time sonographic images were obtained of the right upper quadrant. COMPARISON: None FINDINGS: The liver demonstrates increased echotexture without focal mass lesions. The liver measure s 18.3 cm. There is no intrahepatic or extrahepatic ductal dilatation. The common duct measures 0.5 cm. The gallbladder is without evidence of stone or sludge. The gallbladder wall measures 0.2 cm and is w ithin normal limits. The right kidney measures 10.6 cm. The right kidney is normal in contour, size, and shape. The echoge nicity is normal. There is no hydronephrosis. The pancreas is not well visualized due to overlying bowel gas. IMPRESSION: Hepatic steatosis. Hepatomegaly.
[2024-11-03] MEDS: LEVOTHYROXINE SODIUM 50 MCG TAB PO SCH (10:00)
[2024-11-03 10:23] LABS: INR 1.06 (0.9-1.15); Partial Thromboplastin Time 26.8 SEC (24.5-34.5); Prothrombin Time 11.2 sec (9.3-11.8)
[2024-11-03 11:46] LABS: Urine Protein, UAD Negative (Negative)
[2024-11-03 13:00] VITALS: BP 116/74; PULSE 68; RESP 16; TEMP 98; O2SAT 95
--- NOTE | 2024-11-03 16:27 | DVHPNRES ---
Progress Note Date Seen: Nov 03, 2024 Resident Creating Document: DORA SOUZA RESIDENT Medical Necessity Reason Pt with a Central, PICC or Fol: No Subjective Review of Systems Patient seen and examined at the bedside. All events reviewed currently she is reporting her on pain and back pain got better. Troponins were negative and EKG showed no significant ST changes but low voltage. Due to elevated LFT consulted GI and ordered hepatitis panel Objective vital signs Vital Sign Date Time Temp Pulse Resp B/P (MAP) Pulse Ox O2 Delivery O2 Flow Rate FiO2 11/03/24 13:00 98.0 68 16 116/74 (88) 95 98.0 11/03/24 02:59 Room Air 11/03/24 02:00 0 21 21 medications Current Medications Medications Dose Ordered Sig/Linsey Route Start Time Stop Time Status Last Admin Dose Admin Ondansetron HCl 4 mg Q4HP PRN IV 11/02/24 23:15 Docusate Sodium 100 mg BIDPRN PRN PO 11/02/24 23:15 Nitroglycerin 0.4 mg Q5MINP PRN SL 11/02/24 23:15 Morphine Sulfate 2 mg Q30M PRN IV 11/02/24 23:15 Aspirin 81 mg DAILY PO 11/03/24 10:00 11/03/24 09:14 81 MG Atorvastatin Calcium 40 mg HS PO 11/03/24 22:00 Levothyroxine Sodium 50 mcg DAILY PO 11/03/24 10:00 11/03/24 10:00 50 MCG Losartan Potassium 50 mg HS PO 11/03/24 22:00 Examination Pt is lying on bed General Appearance: Alert, Oriented X3, Cooperative, Not in acute distress HEENT: Atraumatic, Mucous membranes moist/pink Respiratory: Clear to auscultation, Normal air movement, No added sounds Cardiovascular: Regular rate, Normal S1, Normal S2, No murmurs Abdominal: Active bowel sounds, Soft, no distention, no tenderness Extremities:Back tenderness. No edema, Normal pulses, No tenderness/swelling Skin: No Significant rash, except past surgical scars Neuro: Normal speech, sensorimotor deficits none Psych/Mental Status: Mental status NL, Mood NL Nurse was there as administrative supervisor during examination laboratory and microbiology Laboratory Tests 11/03/24 04:48 Test 11/03/24 04:48 Range/Units Serum Glucose 96 74-106 mg/dL Labs and/or images reviewed: Labs reviewed by me, Image(s) reviewed by me Problem List/Assessment/Plan Problem List/Assessment/Plan # RULE OUT ACS # HX of ID status post DEC - telemetry -Troponins negative - EKG showed NSR and no significant ST changes - chest pain protocol with the morphine, nitro - echo pending # Transaminitis with hyperbilirubinemia # ? MASH with hepatomegaly # rule out liver metastasis from old [place] carcinoma # rule out hepatitis infection # neutropenia possibly due to immunotherapy - ordered hepatitis panel - monitor hepatic panel continuously - GI consult on board - liver ultrasound showed hepatic steatosis /hepatomegaly # Possible THONY - outpatient follow up with sleep studies # Hx of CVA x2, continue aspirin and Lipitor # HTN, resumed home meds # dyslipidemia -continue home meds # hypothyroidism- Continue home meds # Anxiety -continue home meds # Morbid obesity BMI- 37.6 - patient counseled on diet, exercise, lifestyle modifications for the 13 minutes GI PPX: Protonix VTE ppx: Ambulatory Diet: cardiac diet Goals of care addressed with the patient for more than 27 minutes: Full code status Case discussed with Dr. Dorsey ,patient and nurse Plan discussed with: Patient My Orders My Orders Orders - DORA SOUZA Procedure Category Date Status Time Drug Screen LAB 11/03/24 In Process 08:29 LIVER US 11/03/24 Resulted 08:29 DORA SOUZA RESIDENT Nov 03, 2024 16:27
[2024-11-03 17:00] VITALS: BP 116/89; PULSE 75; RESP 16; TEMP 97.9; O2SAT 95
[2024-11-03 18:16] LABS: Opiate Scree,Urine Neg (NEGATIVE)
[2024-11-03 18:17] LABS: Amphetamine Screen, Urine Neg (NEGATIVE); Barbiturate Scree,Urine Neg (NEGATIVE); Benzodiazephine Screen, Urine Neg (NEGATIVE); Cannabinoid Screen, Urine Neg (NEGATIVE); Cocaine Screen, Urine Neg (NEGATIVE); Phencyclidine Screen, Urine Neg (NEGATIVE)
[2024-11-03 21:00] VITALS: BP 108/63; PULSE 76; RESP 20; TEMP 97.9; O2SAT 96
[2024-11-03] MEDS: PANTOPRAZOLE 40 MG/10 ML VIAL INJ IV ONE (21:10)
[2024-11-03] MEDS: LOSARTAN POTASSIUM 50 MG TAB PO SCH (21:14)
[2024-11-03] MEDS: KETOROLAC TROMETH 30 MG/ML 1ML VIAL IV ONE (21:15)
[2024-11-03] MEDS ORDERED: ATORVASTATIN 20 MG TAB PO SCH (22:00)
[2024-11-04] VITALS (7 sets, daily range): BP systolic 119–130; BP diastolic 74–86; PULSE 18–80; RESP 16–95; TEMP 97.6–98.1; O2SAT 94–98
--- NOTE | 2024-11-04 07:44 | ECG ---
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
[2024-11-04 10:40] LABS: Hematocrit 41.4 % (36.0-46.0); Hemoglobin 14.2 g/dL (12.2-16.2); Mean Corpuscular Hemoglobin 30.8 pg (28.0-32.0); Mean Corpuscular Volume 90.2 fL (80.0-100.0); Nucleated Red Blood Cells % 0.1 %
[2024-11-04 10:56] LABS: Albumin 3.8 g/dL (3.2-4.8); Anion Gap 9 (5-15); BUN/Creatinine Ratio 16.4 (10.0-20.0); Blood Urea Nitrogen 12 mg/dL (9-23); Calcium 8.8 mg/dL (8.7-10.4); Carbon Dioxide 25 mmol/L (20-31); Chloride 105 mmol/L (98-107); Potassium 3.6 mmol/L (3.5-5.1); Sodium 139 mmol/L (136-145); Total Protein 6.7 g/dL (5.7-8.2)
[2024-11-04 10:57] LABS: Alanine Aminotransferase 867 U/L (7-40); Alkaline Phosphatase 178 U/L (46-116); Bilirubin, Total 1.9 mg/dL (0.2-1.0); Glucose 192 mg/dL (74-106)
[2024-11-04 11:39] LABS: Hepatitis B Surface Antigen Negative (Negative)
[2024-11-04 11:50] LABS: Hepatitis C Antibody Negative (Negative)
--- NOTE | 2024-11-04 14:55 | DVHINCON2 ---
GI Consult Consult Note GI consult note Date of Consultation: 11/04/2024 Chief Complaint: Elevated liver enzymes Referring Physician: Dr. Corrales H&P: 59-year-old female admitted with complains of weakness and fatigue for the past two weeks. Patient also had left arm pain and has history of [place], status post two cardiac stents placed. Patient also has two episodes of stroke in the past. Patient denies abdominal pain. Nausea and vomiting is improving. No melena or red blood in stool. Patient admits to recent exposure with COVID when she is babysitting her grandson. Also admits to taking multiple supplements that is new to her like a multivitamin vitamin-D and magnesium and was taking extra doses of this also. Patient admits to only occasional alcohol use. No history of hepatitis. No recent antibiotic use. Patient admits to feeling confused yesterday but is feeling better at this time Past Medical History: Anxiety, Cancer, CVA, hyperlipidemia, HTN, [place] Past Surgical History: , surgery on left calf and left inguinal region Social History: NO smoking, drinking ETOH and use of illegal drugs. Family History: Noncontributory Review of Systems: Constitutional: no fever, chill, weight loss HEENT: no eye pain, no hearing loss, no oral lesion, no scleral icterus Heart: no chest pain, no chest pressure Lung: no cough, no dyspnea with exertion Abdomen: see HPI Physical exam: General: NAD, AAOX3 Chest: lung meraz clear to auscultation Heart: RRR, no murmur Abdomen: non-distended, no tenderness to palpation, +BS Labs: Labs Test 11/04/24 12:58 11/04/24 10:14 11/03/24 11:54 11/03/24 11:20 Range/Units Ferritin 922.6 H 10-291 ng/mL Lipase 53 12-53 U/L White Blood Count 3.3 L 4.4-10.8 10^3/uL Red Blood Count 4.59 4.0-5.20 10^6/uL Hemoglobin 14.2 12.2-16.2 g/dL Hematocrit 41.4 36.0-46.0 % Mean Corpuscular Volume 90.2 80.0-100.0 fL Mean Corpuscular Hemoglobin 30.8 28.0-32.0 pg Mean Corpuscular Hemoglobin Concent 34.2 32.0-36.0 g/dL Red Cell Distribution Width 15.9 H 11.8-14.3 % Platelet Count 184 140-450 10^3/uL Mean Platelet Volume 8.9 6.9-10.8 fL Neutrophils (%) (Auto) 46.8 37.0-80.0 % Lymphocytes (%) (Auto) 37.1 10.0-50.0 % Monocytes (%) (Auto) 10.9 0.0-12.0 % Eosinophils (%) (Auto) 4.0 0.0-7.0 % Basophils (%) (Auto) 1.2 0.0-2.0 % Neutrophils # (Auto) 1.6 1.6-8.6 10 ^3/uL Lymphocytes # (Auto) 1.2 0.4-5.4 10 ^3/uL Monocytes # (Auto) 0.4 0-1.3 10 ^3/uL Eosinophils # (Auto) 0.1 0-0.8 10 ^3/uL Basophils # (Auto) 0 0-0.2 10 ^3/uL Nucleated Red Blood Cells 0.1 % Sodium Level 139 136-145 mmol/L Potassium Level 3.6 3.5-5.1 mmol/L Chloride Level 105 98-107 mmol/L Carbon Dioxide Level 25 20-31 mmol/L Anion Gap 9 5-15 Blood Urea Nitrogen 12 9-23 mg/dL Creatinine 0.73 0.550-1.02 mg/dL Glomerular Filtration Rate Calc 95 >90 mL/min BUN/Creatinine Ratio 16.4 10.0-20.0 Serum Glucose 192 H 74-106 mg/dL Calcium Level 8.8 8.7-10.4 mg/dL Total Bilirubin 1.9 H 0.2-1.0 mg/dL Aspartate Amino Transferase (AST) 373 H 13-40 U/L Alanine Aminotransferase (ALT) 867 H 7-40 U/L Alkaline Phosphatase 178 H 46-116 U/L Total Protein 6.7 5.7-8.2 g/dL Albumin 3.8 3.2-4.8 g/dL POC Glucose 96 70-106 mg/dl Urine Color Yellow Yellow Urine Clarity Clear Clear Urine pH 5.5 5.0-9.0 Urine Specific [place] 1.021 1.001-1.035 Urine Protein Negative Negative Urine Ketones Negative Negative Urine Blood Negative Negative /uL Urine Nitrite Negative Negative Urine Bilirubin Negative Negative Urine Urobilinogen 8 H Negative mg/dL Urine Leukocyte Esterase Negative Negative /uL Urine RBC 1 0 - 4 /hpf Urine Microscopic WBC 3 0-5 /HPF Urine Squamous Epithelial Cells Few <5 /hpf Urine Bacteria None seen None Seen /hpf Urine Glucose 2+ H Normal mg/dL Urine Opiates Screen Neg NEGATIVE Urine Fentanyl Screen Neg NEGATIVE Urine Barbiturates Screen Neg NEGATIVE Urine Phencyclidine Screen Neg NEGATIVE Urine Amphetamines Screen Neg NEGATIVE Urine Benzodiazepines Screen Neg NEGATIVE Urine Cocaine Screen Neg NEGATIVE Urine Cannabinoids Screen Neg NEGATIVE Test 11/03/24 09:15 11/03/24 04:48 11/02/24 14:45 Range/Units Prothrombin Time 11.2 9.3-11.8 sec Prothrombin Time INR 1.06 0.9-1.15 Activated Partial Thromboplast Time 26.8 24.5-34.5 SEC Thyroid Stimulating Hormone (TSH) 4.17 0.55-4.78 uIU/mL Acetaminophen Level < 2.0 L 10.0-20.0 UG/ML Hepatitis A IgM Antibody Negative Hepatitis B Surface Antigen Negative Negative Hepatitis B Core IgM Antibody Negative Negative Hepatitis C Antibody Negative Negative Direct Bilirubin 0.9 H <0.3 mg/dL Troponin I High Sensitivity < 3 L </=34 ng/L Triglycerides Level 150 H < 150 mg/dL Cholesterol Level 155 < 200 mg/dL LDL Cholesterol 89 < 100 mg/dL HDL Cholesterol 34 L 40-59 mg/dL D-Dimer, Quantitative < 0.19 0.0-0.49 mg/L FEU B-Type Natriuretic Peptide 27.47 0-100 pg/mL Imaging: Liver ultrasound IMPRESSION: Hepatic steatosis. Hepatomegaly. Assessment: Transaminitis possible secondary to viral infection or new medications History of Ramya carcinoma History of [place] Plan: Discussed with Dr. Snow Old records reviewed also Check for COVID infection Patient advised extreme caution when using [id number] supplements or vitamins Monitor labs We will continue to monitor patient Thank you for this consult Date of Service: Nov 04, 2024 Billing Provider: BELLA NIETO Common Visit Codes: CONSULT ONLY Consultation Codes: [id number] CONSULT <60MIN BELLA NIETO Nov 04, 2024 14:55
--- NOTE | 2024-11-04 15:15 | DVHPNRES ---
Progress Note Date Seen: Nov 04, 2024 Resident Creating Document: DORA SOUZA RESIDENT Medical Necessity Reason Pt with a Central, PICC or Fol: No Subjective Review of Systems Patient seen and examined at the bedside. Overnight events reviewed, no new complaints reported at this time. Patient reported improvement in her pain in the hand and the shoulder. We are continuously monitoring her hepatic panel. Ordered SILVANA and antismooth muscle antibodies. Patient reports: Feels better Objective vital signs Vital Sign Date Time Temp Pulse Resp B/P (MAP) Pulse Ox O2 Delivery O2 Flow Rate FiO2 11/04/24 12:38 98.0 75 20 121/74 (90) 96 98.0 11/04/24 08:00 Room Air* 0 21 medications Current Medications Medications Dose Ordered Sig/Linsey Route Start Time Stop Time Status Last Admin Dose Admin Ondansetron HCl 4 mg Q4HP PRN IV 11/02/24 23:15 Docusate Sodium 100 mg BIDPRN PRN PO 11/02/24 23:15 Nitroglycerin 0.4 mg Q5MINP PRN SL 11/02/24 23:15 Morphine Sulfate 2 mg Q30M PRN IV 11/02/24 23:15 Aspirin 81 mg DAILY PO 11/03/24 10:00 11/04/24 09:27 81 MG Levothyroxine Sodium 50 mcg DAILY PO 11/03/24 10:00 11/04/24 09:27 50 MCG Losartan Potassium 50 mg HS PO 11/03/24 22:00 Examination Pt is lying on bed General Appearance: Alert, Oriented X3, Cooperative, Not in acute distress HEENT: Atraumatic, Mucous membranes moist/pink Respiratory: Clear to auscultation, Normal air movement, No added sounds Cardiovascular: Regular rate, Normal S1, Normal S2, No murmurs Abdominal: Active bowel sounds, Soft, no distention, no tenderness Extremities:Back tenderness. No edema, Normal pulses, No tenderness/swelling Skin: No Significant rash, except past surgical scars Neuro: Normal speech, sensorimotor deficits none Psych/Mental Status: Mental status NL, Mood NL Nurse was there as customer service advisor during examination laboratory and microbiology Laboratory Tests 11/04/24 10:14 Test 11/04/24 10:14 Range/Units Serum Glucose 192 H 74-106 mg/dL Labs and/or images reviewed: Labs reviewed by me, Image(s) reviewed by me Problem List/Assessment/Plan Problem List/Assessment/Plan # Transaminitis with hyperbilirubinemia # ? MASH with hepatomegaly # rule out liver metastasis from old [place] carcinoma # rule out hepatitis infection # neutropenia possibly due to immunotherapy # rule out autoimmune hepatitis - ordered hepatitis panel - monitor hepatic panel continuously - GI consult on board - liver ultrasound showed hepatic steatosis /hepatomegaly - ordered SILVANA panel and antismooth muscle antibodies # Ruled out ACS # HX of MD status post DEC - telemetry - Troponins negative - EKG showed NSR and no significant ST changes - chest pain protocol with the morphine, nitro - echo pending # Possible THONY - outpatient follow up with sleep studies # Hx of CVA x2, continue aspirin and Lipitor # HTN, resumed home meds # dyslipidemia -continue home meds # hypothyroidism- Continue home meds # Anxiety -continue home meds # Morbid obesity BMI- 37.6 - patient counseled on diet, exercise, lifestyle modifications for the 13 minutes GI PPX: Protonix VTE ppx: Ambulatory Diet: cardiac diet Goals of care addressed with the patient for more than 27 minutes: Full code status Case discussed with Dr. Dorsey ,patient and nurse Plan discussed with: Patient My Orders My Orders Orders - DORA SOUZA Procedure Category Date Status Time * Gi Dvh High Speed Operator CONS 11/04/24 Transmitted 07:10 Transfer Orders XFER 11/04/24 Transmitted 14:18 Actin (Smooth Muscle) LAB 11/04/24 Transmitted Antibody 15:09 DORA SOUZA RESIDENT Nov 04, 2024 15:15
[2024-11-04 18:03] LABS: COVID19 ANTIGEN SOFIA FIA NEGATIVE (NEGATIVE)
[2024-11-05] VITALS (7 sets, daily range): BP systolic 110–131; BP diastolic 75–84; PULSE 64–91; RESP 16–20; TEMP 97.7–98.3; O2SAT 94–98
[2024-11-05 07:29] LABS: Anion Gap 9 (5-15); BUN/Creatinine Ratio 17.6 (10.0-20.0); Blood Urea Nitrogen 13 mg/dL (9-23); Calcium 8.8 mg/dL (8.7-10.4); Carbon Dioxide 26 mmol/L (20-31); Chloride 106 mmol/L (98-107); Glucose 96 mg/dL (74-106); Potassium 4.0 mmol/L (3.5-5.1); Sodium 141 mmol/L (136-145); Total Protein 6.6 g/dL (5.7-8.2)
[2024-11-05 07:30] LABS: Albumin 3.8 g/dL (3.2-4.8)
[2024-11-05 07:33] LABS: Alanine Aminotransferase 764 U/L (7-40); Alkaline Phosphatase 189 U/L (46-116); Bilirubin, Total 1.3 mg/dL (0.2-1.0)
--- NOTE | 2024-11-05 07:36 | ECG ---
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
--- NOTE | 2024-11-05 11:47 | DVHPNRES ---
Progress Note Date Seen: Nov 05, 2024 Resident Creating Document: DORA SOUZA RESIDENT Medical Necessity Reason Pt with a Central, PICC or Fol: No Subjective Review of Systems Patient seen and examined at the bedside. Overnight events reviewed, no new complaints reported at this time. We are continuously monitoring her hepatic panel. Ordered SILVANA and antismooth muscle antibodies. Hepatitis panel showed negative. Objective vital signs Vital Sign Date Time Temp Pulse Resp B/P (MAP) Pulse Ox O2 Delivery O2 Flow Rate FiO2 11/05/24 09:00 97.7 71 17 131/84 (100) 94 97.7 11/04/24 20:00 Room Air* 0 21 Total Intake and Output 11/04/24 11/04/24 11/05/24 15:00 23:00 07:00 Intake Total 800 ml Balance 800 ml medications Current Medications Medications Dose Ordered Sig/Linsey Route Start Time Stop Time Status Last Admin Dose Admin Ondansetron HCl 4 mg Q4HP PRN IV 11/02/24 23:15 Docusate Sodium 100 mg BIDPRN PRN PO 11/02/24 23:15 Nitroglycerin 0.4 mg Q5MINP PRN SL 11/02/24 23:15 Morphine Sulfate 2 mg Q30M PRN IV 11/02/24 23:15 Aspirin 81 mg DAILY PO 11/03/24 10:00 11/05/24 09:41 81 MG Levothyroxine Sodium 50 mcg DAILY PO 11/03/24 10:00 11/05/24 09:41 50 MCG Losartan Potassium 50 mg HS PO 11/03/24 22:00 11/04/24 21:49 50 MG Examination Pt is lying on bed General Appearance: Alert, Oriented X3, Cooperative, Not in acute distress HEENT: Atraumatic, Mucous membranes moist/pink Respiratory: Clear to auscultation, Normal air movement, No added sounds Cardiovascular: Regular rate, Normal S1, Normal S2, No murmurs Abdominal: Active bowel sounds, Soft, no distention, no tenderness Extremities:Back tenderness. No edema, Normal pulses, No tenderness/swelling Skin: No Significant rash, except past surgical scars Neuro: Normal speech, sensorimotor deficits none Psych/Mental Status: Mental status NL, Mood NL Nurse was there as mail order sorter during examination laboratory and microbiology Laboratory Tests 11/05/24 06:17 11/04/24 10:14 Test 11/05/24 06:17 Range/Units Serum Glucose 96 74-106 mg/dL Labs and/or images reviewed: Labs reviewed by me, Image(s) reviewed by me Problem List/Assessment/Plan Problem List/Assessment/Plan # Transaminitis with hyperbilirubinemia # ? MASH with hepatomegaly # rule out liver metastasis from old [place] carcinoma # ruled out hepatitis infection # neutropenia possibly due to immunotherapy # rule out autoimmune hepatitis - ordered hepatitis panel, negative - monitor hepatic panel continuously - GI consult on board - liver ultrasound showed hepatic steatosis /hepatomegaly - ordered SILVANA panel and antismooth muscle antibodies # Ruled out ACS # HX of [place] status post DEC - telemetry - Troponins negative - EKG showed NSR and no significant ST changes - chest pain protocol with the morphine, nitro - echo pending # Possible THONY - outpatient follow up with sleep studies # Hx of CVA x2, continue aspirin and Lipitor # HTN, resumed home meds # dyslipidemia -continue home meds # hypothyroidism- Continue home meds # Anxiety -continue home meds # Morbid obesity BMI- 37.6 - patient counseled on diet, exercise, lifestyle modifications for the 13 minutes GI PPX: Protonix VTE ppx: Ambulatory Diet: cardiac diet Goals of care addressed with the patient for more than 27 minutes: Full code status Case discussed with Dr. Dorsey ,patient and nurse Plan discussed with: Patient My Orders My Orders Orders - DORA SOUZA RESIDENT Procedure Category Date Status Time Transfer Orders XFER 11/04/24 Transmitted 14:18 DORA SOUZA RESIDENT Nov 05, 2024 11:47
--- NOTE | 2024-11-05 13:31 | DVHPN2 ---
Subjective Patient admits to feeling better Changes from previous H/P or p: No Changes Eyes: No Pain, No Vision change, No Conjunctivae inflammation, No Eyelid inflammation, No Other, No Redness ENT: No Ear pain, No Ear discharge, No Nose pain, No Nose discharge, No Nose congestion, No Mouth pain, No Mouth swelling, No Throat pain, No Throat swelling, No Other Cardiovascular: Chest Pain; No Palpitations, No Orthopnea, No Paroxysmal Noc. Dyspnea, No Edema, No Lt Headedness, No Other Respiratory: No Cough, No Dry; Shortness of breath; No SOB with excertion, No Wheezing, No Hemoptysis, No Pleuritic Pain, No Sputum, No Other Gastrointestinal: Nausea, Vomiting Genitourinary: No Dysuria, No Frequency, No Incontinence, No Hematuria, No Retention, No Other Musculoskeletal: No other, No neck pain; shoulder pain, arm pain; No back pain, No hand pain, No leg pain, No foot pain Skin: No Rash, No Lesions, No Jaundice, No Bruising, No Other Objective Vitals Vital Signs Date Time Temp Pulse Resp B/P (MAP) Pulse Ox O2 Delivery O2 Flow Rate FiO2 11/05/24 13:00 97.7 64 16 120/79 (93) 95 97.7 11/04/24 20:00 Room Air* 0 21 Intake/Output Intake and Output 11/05/24 07:00 Intake Total 800 ml Balance 800 ml Intake Oral 800 ml # Voids 6 General Appearance: Alert, Oriented X3, Cooperative, No acute distress, mild distress, moderate distress, severe distress, Other Lungs: Clear to auscultation, Normal air movement, Other Cardiovascular: Regular rate, Normal S1, Normal S2, No murmurs, Gallops, Rubs, Other Abdomen: Normal bowel sounds, Soft, No tenderness, No hepatospenomegaly, No masses, Other Medications Current Medications Medications Dose Ordered Sig/Linsey Route Start Time Stop Time Status Last Admin Dose Admin Ondansetron HCl 4 mg Q4HP PRN IV 11/02/24 23:15 Docusate Sodium 100 mg BIDPRN PRN PO 11/02/24 23:15 Nitroglycerin 0.4 mg Q5MINP PRN SL 11/02/24 23:15 Morphine Sulfate 2 mg Q30M PRN IV 11/02/24 23:15 Aspirin 81 mg DAILY PO 11/03/24 10:00 11/05/24 09:41 81 MG Levothyroxine Sodium 50 mcg DAILY PO 11/03/24 10:00 11/05/24 09:41 50 MCG Losartan Potassium 50 mg HS PO 11/03/24 22:00 11/04/24 21:49 50 MG Laboratory Results Laboratory Tests 11/04/24 10:14 11/05/24 06:17 Chemistry Test 11/05/24 06:17 Albumin 3.8 g/dL (3.2-4.8) Calcium Level 8.8 mg/dL (8.7-10.4) Total Protein 6.6 g/dL (5.7-8.2) LFT Test 11/05/24 06:17 Alanine Aminotransferase (ALT) 764 U/L (7-40) H Alkaline Phosphatase 189 U/L (46-116) H Aspartate Amino Transferase (AST) 268 U/L (13-40) H Total Bilirubin 1.3 mg/dL (0.2-1.0) H Urinalysis Test 11/03/24 11:20 Urine Color Yellow (Yellow) Urine Clarity Clear (Clear) Urine pH 5.5 (5.0-9.0) Urine Specific [place] 1.021 (1.001-1.035) Urine Protein Negative (Negative) Urine Ketones Negative (Negative) Urine Blood Negative /uL (Negative) Urine Nitrite Negative (Negative) Urine Bilirubin Negative (Negative) Urine Urobilinogen 8 mg/dL (Negative) H Urine Leukocyte Esterase Negative /uL (Negative) Urine RBC 1 /hpf (0 - 4) Urine Microscopic WBC 3 /HPF (0-5) Urine Squamous Epithelial Cells Few /hpf (<5) Urine Bacteria None seen /hpf (None Seen) Urine Glucose 2+ mg/dL (Normal) H Labs and/or images reviewed: Labs reviewed by me, Image(s) reviewed by me Assessment/Plan Assessment/Plan Transaminitis possible secondary to viral infection or new medications History of Ramya carcinoma History of [place] Plan Discussed with Dr. Snow Negative for COVID infection Stressed avoiding of any hepatotoxic medications Monitor lab Outpatient GI follow-up in two weeks recommended Plan discussed with: Patient Date of Service: Nov 05, 2024 Billing Provider: BELLA NIETO Common Visit Codes: [id number] INP/OBS CARE(HIGH) BELLA NIETO Nov 05, 2024 13:31
--- NOTE | 2024-11-05 14:10 | DVHSR ---
APPROVED REPORT EXAM: LIMITED Two-dimensional and M-mode echocardiogram with Doppler and color Doppler. Blood Pressure: 121/86 mmHg INDICATION Rule out structural heart disease RISK FACTORS Obesity: Height: 5' 7", Weight: 240 DIMENSIONS LVDd4.4 (3.8-5.7cm)LA (2D)3.1 (1.9-4.0cm)Aortic Root3.1 (2.0-3.7cm) LVDs2.8 (2.5-4.0cm)LA (MM) (1.9-4.0cm)Aortic Cusp Exc1.7 (1.5-2.0cm) EF (%) 60.0 (55-70%)Rt. Atrium3.8 (1.9-4.0cm)Asc. Aorta cm IVSd1.2 (0.7-1.1cm)RV (D) (1.8-2.4cm) PWd1.1 (0.7-1.1cm) Mitral Valve MitralMitral Stenosis E wave0.80m/sMV Mean GR.mmHg A wave0.80m/sMV Peak GR.mmHg E/A ratio1.02D MVAcm2 Aortic Valve Aortic ValveAortic Stenosis V10.70m/Steve Mean GR.2mmHg V21.00m/Steve Peak GR.5mmHg LVOT Diameter2.0 (1.8-2.4cm)Doppler AVA2.20cm2 Pulmonic Valve V20.50m/s Tricuspid Valve TR Velocity2.20m/s [id number] Other Information Quality : Technically LimitedRhythm : Technically limited study due to body habitus. Conclusion lvef 60% normal rv function left atrium enlarged no severe valve abnormaliteis noted
[2024-11-06 01:15] VITALS: BP 117/77; PULSE 78; RESP 16; TEMP 98.2; O2SAT 95
[2024-11-06 04:26] LABS: Hematocrit 42.4 % (36.0-46.0); Hemoglobin 14.4 g/dL (12.2-16.2); Mean Corpuscular Hemoglobin 30.3 pg (28.0-32.0); Mean Corpuscular Volume 89.4 fL (80.0-100.0); Nucleated Red Blood Cells % 0.3 %
[2024-11-06 04:41] LABS: Albumin 3.9 g/dL (3.2-4.8); Anion Gap 11 (5-15); BUN/Creatinine Ratio 21.3 (10.0-20.0); Bilirubin, Total 1.1 mg/dL (0.2-1.0); Blood Urea Nitrogen 17 mg/dL (9-23); Calcium 9.4 mg/dL (8.7-10.4); Carbon Dioxide 24 mmol/L (20-31); Chloride 105 mmol/L (98-107); Glucose 103 mg/dL (74-106); Potassium 4.0 mmol/L (3.5-5.1); Sodium 140 mmol/L (136-145); Total Protein 6.9 g/dL (5.7-8.2)
[2024-11-06 04:42] LABS: Alanine Aminotransferase 715 U/L (7-40); Alkaline Phosphatase 189 U/L (46-116)
[2024-11-06 04:55] VITALS: BP 118/82; PULSE 74; RESP 16; TEMP 98.3; O2SAT 94
[2024-11-06 08:00] VITALS: PULSE 72; RESP 18; O2SAT 95
[2024-11-06 09:00] VITALS: BP 134/82; PULSE 72; RESP 18; TEMP 97.7; O2SAT 95
[2024-11-06 13:00] VITALS: BP 109/60; PULSE 51; RESP 17; TEMP 97.9; O2SAT 95
--- NOTE | 2024-11-06 13:02 | DVHPN2 ---
Subjective Patient admits to feeling better Would like to go home Changes from previous H/P or p: No Changes Eyes: No Pain, No Vision change, No Conjunctivae inflammation, No Eyelid inflammation, No Other, No Redness ENT: No Ear pain, No Ear discharge, No Nose pain, No Nose discharge, No Nose congestion, No Mouth pain, No Mouth swelling, No Throat pain, No Throat swelling, No Other Cardiovascular: Chest Pain; No Palpitations, No Orthopnea, No Paroxysmal Noc. Dyspnea, No Edema, No Lt Headedness, No Other Respiratory: No Cough, No Dry; Shortness of breath; No SOB with excertion, No Wheezing, No Hemoptysis, No Pleuritic Pain, No Sputum, No Other Gastrointestinal: Nausea, Vomiting Genitourinary: No Dysuria, No Frequency, No Incontinence, No Hematuria, No Retention, No Other Musculoskeletal: No other, No neck pain; shoulder pain, arm pain; No back pain, No hand pain, No leg pain, No foot pain Skin: No Rash, No Lesions, No Jaundice, No Bruising, No Other Objective Vitals Vital Signs Date Time Temp Pulse Resp B/P (MAP) Pulse Ox O2 Delivery O2 Flow Rate FiO2 11/06/24 09:00 97.7 72 18 134/82 (99) 95 97.7 11/06/24 08:00 Room Air* 0 21 Intake/Output Intake and Output 11/06/24 07:00 Intake Total 1800 ml Balance 1800 ml Intake Oral 1800 ml # Voids 10 # Bowel Movements 2 General Appearance: Alert, Oriented X3, Cooperative, No acute distress, mild distress, moderate distress, severe distress, Other Lungs: Clear to auscultation, Normal air movement, Other Cardiovascular: Regular rate, Normal S1, Normal S2, No murmurs, Gallops, Rubs, Other Abdomen: Normal bowel sounds, Soft, No tenderness, No hepatospenomegaly, No masses, Other Medications Current Medications Medications Dose Ordered Sig/Linsey Route Start Time Stop Time Status Last Admin Dose Admin Ondansetron HCl 4 mg Q4HP PRN IV 11/02/24 23:15 Docusate Sodium 100 mg BIDPRN PRN PO 11/02/24 23:15 Nitroglycerin 0.4 mg Q5MINP PRN SL 11/02/24 23:15 Morphine Sulfate 2 mg Q30M PRN IV 11/02/24 23:15 Aspirin 81 mg DAILY PO 11/03/24 10:00 11/06/24 10:42 81 MG Levothyroxine Sodium 50 mcg DAILY PO 11/03/24 10:00 11/06/24 10:42 50 MCG Losartan Potassium 50 mg HS PO 11/03/24 22:00 11/05/24 21:22 50 MG Laboratory Results Laboratory Tests 11/06/24 03:57 Chemistry Test 11/06/24 03:57 Albumin 3.9 g/dL (3.2-4.8) Calcium Level 9.4 mg/dL (8.7-10.4) Total Protein 6.9 g/dL (5.7-8.2) LFT Test 11/06/24 03:57 Alanine Aminotransferase (ALT) 715 U/L (7-40) H Alkaline Phosphatase 189 U/L (46-116) H Aspartate Amino Transferase (AST) 234 U/L (13-40) H Total Bilirubin 1.1 mg/dL (0.2-1.0) H Urinalysis Test 11/03/24 11:20 Urine Color Yellow (Yellow) Urine Clarity Clear (Clear) Urine pH 5.5 (5.0-9.0) Urine Specific [place] 1.021 (1.001-1.035) Urine Protein Negative (Negative) Urine Ketones Negative (Negative) Urine Blood Negative /uL (Negative) Urine Nitrite Negative (Negative) Urine Bilirubin Negative (Negative) Urine Urobilinogen 8 mg/dL (Negative) H Urine Leukocyte Esterase Negative /uL (Negative) Urine RBC 1 /hpf (0 - 4) Urine Microscopic WBC 3 /HPF (0-5) Urine Squamous Epithelial Cells Few /hpf (<5) Urine Bacteria None seen /hpf (None Seen) Urine Glucose 2+ mg/dL (Normal) H Labs and/or images reviewed: Labs reviewed by me, Image(s) reviewed by me Assessment/Plan Assessment/Plan Transaminitis possible secondary to viral infection or new medications History of Ramya carcinoma History of ID Plan Discussed with Dr. Snow Stressed avoiding of any hepatotoxic medications Outpatient GI follow-up in two weeks recommended Plan discussed with: Patient Date of Service: Nov 06, 2024 Billing Provider: BELLA NIETO Common Visit Codes: [id number] INP/OBS CARE(MOD) BELLA NIETO Nov 06, 2024 13:02
[2024-11-06 13:14] VITALS: BP 113/77; PULSE 70; RESP 16; TEMP 98.7; O2SAT 96
--- NOTE | 2024-11-06 15:37 | DVHDSRES ---
Discharge Summary Date of Admission Resident Creating Document: DORA SOUZA RESIDENT Nov 02, 2024 at 23:11 Date of Discharge: Nov 06, 2024 Admitting Diagnosis Severe transaminitis Labs/Diagnostic Data: Laboratory Results Test 11/06/24 03:57 11/05/24 15:53 11/04/24 16:44 11/04/24 16:42 White Blood Count 4.1 10^3/uL (4.4-10.8) Red Blood Count 4.74 10^6/uL (4.0-5.20) Hemoglobin 14.4 g/dL (12.2-16.2) Hematocrit 42.4 % (36.0-46.0) Mean Corpuscular Volume 89.4 fL (80.0-100.0) Mean Corpuscular Hemoglobin 30.3 pg (28.0-32.0) Mean Corpuscular Hemoglobin Concent 33.9 g/dL (32.0-36.0) Red Cell Distribution Width 16.1 % (11.8-14.3) Platelet Count 213 10^3/uL (140-450) Mean Platelet Volume 9.0 fL (6.9-10.8) Neutrophils (%) (Auto) 45.1 % (37.0-80.0) Lymphocytes (%) (Auto) 39.3 % (10.0-50.0) Monocytes (%) (Auto) 10.8 % (0.0-12.0) Eosinophils (%) (Auto) 3.3 % (0.0-7.0) Basophils (%) (Auto) 1.5 % (0.0-2.0) Neutrophils # (Auto) 1.8 10 ^3/uL (1.6-8.6) Lymphocytes # (Auto) 1.6 10 ^3/uL (0.4-5.4) Monocytes # (Auto) 0.4 10 ^3/uL (0-1.3) Eosinophils # (Auto) 0.1 10 ^3/uL (0-0.8) Basophils # (Auto) 0.1 10 ^3/uL (0-0.2) Nucleated Red Blood Cells 0.3 % Sodium Level 140 mmol/L (136-145) Potassium Level 4.0 mmol/L (3.5-5.1) Chloride Level 105 mmol/L (98-107) Carbon Dioxide Level 24 mmol/L (20-31) Anion Gap 11 (5-15) Blood Urea Nitrogen 17 mg/dL (9-23) Creatinine 0.80 mg/dL (0.550-1.02) Glomerular Filtration Rate Calc 85 mL/min (>90) BUN/Creatinine Ratio 21.3 (10.0-20.0) Serum Glucose 103 mg/dL (74-106) Calcium Level 9.4 mg/dL (8.7-10.4) Total Bilirubin 1.1 mg/dL (0.2-1.0) Aspartate Amino Transferase (AST) 234 U/L (13-40) Alanine Aminotransferase (ALT) 715 U/L (7-40) Alkaline Phosphatase 189 U/L (46-116) Total Protein 6.9 g/dL (5.7-8.2) Albumin 3.9 g/dL (3.2-4.8) [facility] Ammonia 31 umol/L (11-32) SARS-CoV-2 Antigen (Rapid) Negative (NEGATIVE) Test 11/04/24 12:58 11/03/24 11:54 11/03/24 11:20 11/03/24 09:15 Ferritin 922.6 ng/mL (10-291) Lipase 53 U/L (12-53) Anti-Nuclear Antibody Screen Negative (Negative) POC Glucose 96 mg/dl (70-106) Urine Color Yellow (Yellow) Urine Clarity Clear (Clear) Urine pH 5.5 (5.0-9.0) Urine Specific [place] 1.021 (1.001-1.035) Urine Protein Negative (Negative) Urine Ketones Negative (Negative) Urine Blood Negative /uL (Negative) Urine Nitrite Negative (Negative) Urine Bilirubin Negative (Negative) Urine Urobilinogen 8 mg/dL (Negative) Urine Leukocyte Esterase Negative /uL (Negative) Urine RBC 1 /hpf (0 - 4) Urine Microscopic WBC 3 /HPF (0-5) Urine Squamous Epithelial Cells Few /hpf (<5) Urine Bacteria None seen /hpf (None Seen) Urine Glucose 2+ mg/dL (Normal) Urine Opiates Screen Neg (NEGATIVE) Urine Fentanyl Screen Neg (NEGATIVE) Urine Barbiturates Screen Neg (NEGATIVE) Urine Phencyclidine Screen Neg (NEGATIVE) Urine Amphetamines Screen Neg (NEGATIVE) Urine Benzodiazepines Screen Neg (NEGATIVE) Urine Cocaine Screen Neg (NEGATIVE) Urine Cannabinoids Screen Neg (NEGATIVE) Prothrombin Time 11.2 sec (9.3-11.8) Prothrombin Time INR 1.06 (0.9-1.15) Activated Partial Thromboplast Time 26.8 SEC (24.5-34.5) Thyroid Stimulating Hormone (TSH) 4.17 uIU/mL (0.55-4.78) Acetaminophen Level < 2.0 UG/ML (10.0-20.0) Hepatitis A IgM Antibody Negative Hepatitis B Surface Antigen Negative (Negative) Hepatitis B Core IgM Antibody Negative (Negative) Hepatitis C Antibody Negative (Negative) Test 11/03/24 04:48 11/02/24 14:45 Direct Bilirubin 0.9 mg/dL (<0.3) Troponin I High Sensitivity < 3 ng/L (</=34) Triglycerides Level 150 mg/dL (< 150) Cholesterol Level 155 mg/dL (< 200) LDL Cholesterol 89 mg/dL (< 100) HDL Cholesterol 34 mg/dL (40-59) D-Dimer, Quantitative < 0.19 mg/L FEU (0.0-0.49) B-Type Natriuretic Peptide 27.47 pg/mL (0-100) Other Laboratory Tests 11/06/24 03:57 Brief Hx & Hospital Course: Rahel Dumont is a 59-year-old female with a complex medical history including prior myocardial infarction with two cardiac stents, two cerebrovascular accidents, [place] cell carcinoma currently in remission, and multiple chronic conditions such as hypertension, dyslipidemia, hypothyroidism, anxiety, and morbid obesity (BMI 37.6). She presented with generalized weakness, excessive daytime sleepiness, and fatigue for two weeks, along with one episode of nausea, vomiting, heartburn, and dyspnea on exertion. She also reported left arm pain radiating to the shoulder and upper back, which was relieved with nitroglycerin and resembled prior cardiac episodes. Workup ruled out acute coronary syndrome; troponins were negative, EKG showed normal sinus rhythm without ST changes, and echocardiogram revealed preserved LVEF (60%), normal RV function, and enlarged left atrium without significant valvular abnormalities. 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 Hepatitis panel was negative, and liver ultrasound showed hepatic steatosis and hepatomegaly. Autoimmune hepatitis could not be ruled out; SILVANA and anti-smooth muscle antibody panels were ordered and will be followed up outpatient. 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 GI consultation advised avoidance of hepatotoxic medications and recommended outpatient follow-up in two weeks. Additional concerns included possible obstructive sleep apnea, for which outpatient sleep studies were advised. Her chronic conditions were managed with continuation of home medications including aspirin, Lipitor, antihypertensives, thyroid replacement, and anxiolytics. She was counseled for 13 minutes on diet, exercise, and lifestyle modifications. During hospitalization, the patient remained hemodynamically stable, and her liver enzymes showed improving trends. She is deemed medically stable for discharge with plans for follow-up with her primary care provider, discharge clinic, GI, and oncology for a scheduled PET scan in two weeks. 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 COMPARISON: None IMPRESSION: Hepatic steatosis. Hepatomegaly. ------ ECHO Conclusion lvef 60% normal rv function left atrium enlarged no severe valve abnormaliteis noted Condition at Discharge: Stable Final Diagnosis/Problems List # Severe Transaminitis with hyperbilirubinemia # ? MASH with hepatomegaly # ruled out hepatitis infection # neutropenia possibly due to immunotherapy # Unable to rule out autoimmune hepatitis on out patient # Unable to rule out liver metastasis from old Ramya carcinoma on out patient # Ruled out ACS # HX of GA status post DEC # Possible THONY # Hx of CVA x2, continue aspirin and Lipitor # HTN, resumed home meds # dyslipidemia -continue home meds # hypothyroidism- Continue home meds # Anxiety -continue home meds # Morbid obesity BMI- 37.6 Discharge Disposition: Home Discharge Instruct/Medications Diet: Consistent carbohydrate, Cardiac 2g Na,low cholest Activity: No Restrictions, As Tolerated Follow Up/Referral: PCP and in discharge Clinic Outpatient follow up with GI in 2 weeks Medications: Per EMR Scheduled Aspirin (Aspir-Low), 81 MG PO DAILY, (Reported) Atorvastatin Calcium (Atorvastatin Calcium), 1 TAB PO QPM, (Reported) Cephalexin (Keflex Capsule), 500 MG PO TID Hydrochlorothiazide (Hydrochlorothiazide), 25 MG PO HS, (Reported) Levothyroxine Sodium (Synthroid Tablet), 1 TAB PO DAILY, (Reported) Losartan Potassium (Losartan Potassium), 50 MG PO HS, (Reported) Discharge Statement: "Patient was advised to return to the ER or call 911 if any headaches, dizziness, shortness of breath, chest pain, abdominal pain, bleeding, fevers, or worsening of medical condition. Patient was counseled about treatment plan, medications, possible side effects, patientverbalized understanding. All questions were answered to the best of my ability. This discharge took greater then 30 minutes in planning, reviewing documentation, counseling the patient, and discussing with other team members." ASSESSMENT ASSESSMENT Assessment # Severe Transaminitis with hyperbilirubinemia # ? MASH with hepatomegaly # ruled out hepatitis infection # neutropenia possibly due to immunotherapy # Unable to rule out autoimmune hepatitis on out patient # Unable to rule out liver metastasis from old Ramya carcinoma on out patient # Ruled out ACS # HX of GA status post DEC # Possible THONY # Hx of CVA x2, continue aspirin and Lipitor # HTN, resumed home meds # dyslipidemia -continue home meds # hypothyroidism- Continue home meds # Anxiety -continue home meds # Morbid obesity BMI- 37.6 DORA SOUZA RESIDENT Nov 06, 2024 15:37
== END 2024-11-06 13:56 | disposition home or self-care (01) | DRG 443 ==
LOC: ER 13:55 → OVERFLOW 23:11 → TELE-EAST 11-03 23:49 → EAST 11-04 08:05
PROVIDERS: ADMIT Student in an Organized Health Care Education/Training Program; ATTEND Emergency Medicine
DX: E80.6 Other disorders of bilirubin metabolism (principal); R16.0 Hepatomegaly, not elsewhere classified; D70.9 Neutropenia, unspecified; M79.602 Pain in left arm; K75.9 Inflammatory liver disease, unspecified; I10 Essential (primary) hypertension; E03.9 Hypothyroidism, unspecified; E66.01 Morbid (severe) obesity due to excess calories; K76.0 Fatty (change of) liver, not elsewhere classified; Z20.822 Contact with and (suspected) exposure to COVID-19; Z68.37 Body mass index [BMI] 37.0-37.9, adult; C4A.9 Merkel cell carcinoma, unspecified; R74.01 Elevation of levels of liver transaminase levels; G47.33 Obstructive sleep apnea (adult) (pediatric); E78.5 Hyperlipidemia, unspecified; F41.9 Anxiety disorder, unspecified; I20.89 Other forms of angina pectoris; Z86.73 Personal history of transient ischemic attack (TIA), and cerebral infarction without residual deficits; I25.2 Old myocardial infarction
CPT/HCPCS: 36415; 71045; 72040; 76705; 80048; 80053; 80061; 80074; 80076; 80307; 80329; 81001; 82140; 82728; 82962; 83690; 83880; 84443; 84484; 85025; 85379; 85610; 85730; 86038; 87426; 93005; 93306; G0378; J1885; J2470